=== PATIENT | male | born 1990 | race Hispanic/Latino ===

== ENCOUNTER 2016-10-10 20:50 | Emergency (ER) | payer BC, MEDICAID ==
[2016-10-10 20:51] VITALS: BMI 23.1
[2016-10-10 21:11] VITALS: RESP 16; TEMP 98.7
--- NOTE | 2016-10-10 21:18 | ED PDOC ---
Arrival/HPI - General Chief Complaint: Psychiatric Evaluation Time Seen by Provider: 10/10/16 20:56 Historian: Patient, Parent (father ) - History of Present Illness Narrative History of Present Illness (Text): 10/10/16 21:20 Akhil Kenney is a 26 year old male, with a history of alcohol abuse, opiate abuse on Wellbutrin and Suboxone and depression, presents to the emergency department accompanied by father for evaluation of suicidal ideation. According to father, patient gestured to his mother that he wanted to kill himself. However, in the emergency department, patient denies any suicidal ideation or specific plan.States he really did'nt mean what he said. Patient has been under psychiatric care. Denies any somatic complaints. Severity Level: Mild Context: Home Past Medical History - Provider Review Nursing Documentation Reviewed: Yes - Infectious Disease Hx of Infectious Diseases: None - Tetanus Immunization Tetanus Immunization: Up to Date - Past Medical History Past Medical History: No Previous - Cardiac Other/Comment: Heart murmer - HEENT Hx Deafness: Yes (Left ear) - Psychiatric Hx Depression: No Hx Emotional Abuse: No Hx Physical Abuse: No Hx Substance Use: Yes - Surgical History Hx Tonsillectomy: Yes (adnoids) - Suicidal Assessment Feels Threatened In Home Enviroment: No Family/Social History - Physician Review Nursing Documentation Reviewed: Yes Family/Social History: No Known Family HX Smoking Status: Never Smoked Hx Alcohol Use: Yes Frequency of alcohol use: Daily Hx Substance Use: Yes Substance used: heroin, marijuana, crack, cocaine, ectasy, acid Hx Substance Use Treatment: No Allergies/Home Meds Allergies/Adverse Reactions: Allergies Penicillins Allergy (Verified 10/10/16 21:18) RASH Home Medications: Home Meds Medication Instructions Recorded Confirmed Buprenorphine HCl/Naloxone HCl 2 each SL DAILY 10/10/16 10/10/16 [Suboxone 8 mg-2 mg Sl Film] diaZEpam [Valium] 10 mg PO BID 10/10/16 10/10/16 Review of Systems - Physician Review All systems were reviewed & negative as marked: Yes - Review of Systems Constitutional: Normal. absent: Fatigue, Fevers Respiratory: Normal. absent: SOB, Cough Cardiovascular: Normal. absent: Chest Pain Gastrointestinal: Normal. absent: Abdominal Pain, Diarrhea, Nausea, Vomiting Neurological: absent: Headache, Dizziness Psychiatric: Suicidal Ideation Physical Exam Vital Signs Reviewed: Yes Vital Signs Temp Pulse Resp BP Pulse Ox 10/10/16 21:05 98.7 F 117 H 16 126/81 98 Temperature: Afebrile Blood Pressure: Normal Pulse: Tachycardic Respiratory Rate: Normal Appearance: Positive for: Well-Appearing, Non-Toxic, Comfortable Pain Distress: None Mental Status: Positive for: Alert and Oriented X 3 - Systems Exam Head: Present: Atraumatic, Normocephalic Pupils: Present: PERRL Conjunctiva: Present: Normal Mouth: Present: Moist Mucous Membranes Respiratory/Chest: Present: Clear to Auscultation, Good Air Exchange. No: Respiratory Distress, Accessory Muscle Use Cardiovascular: Present: Regular Rate and Rhythm, Normal S1, S2. No: Murmurs Abdomen: Present: Normal Bowel Sounds. No: Tenderness, Distention, Peritoneal Signs, Rebound, Guarding Upper Extremity: Present: Normal Inspection. No: Cyanosis, Edema Lower Extremity: Present: Normal Inspection. No: Edema Neurological: Present: GCS=15, CN II-XII Intact, Speech Normal, Motor Func Grossly Intact, Normal Sensory Function Skin: Present: Warm, Dry, Normal Color. No: Rashes Psychiatric: Present: Alert, Oriented x 3. No: Normal Affect (flat affect ) Medical Decision Making ED Course and Treatment: 10/10/16 21:25 Impression: A 26 year old male who presents to the emergency department accompanied by father for evaluation of suicidal ideation. Differential Diagnosis included but are not limited to: SI Plan: -- EKG -- Labs -- Alcohol level -- Drug Screen -- Chest X-ray -- Urinalysis -- Reassess and disposition Progress Notes: 10/10/16 21:44 EKG interpreted by me: Sinus Tachycardia @ 103bpm. Right axis deviation. Nonspecific STT changes. 10/11/16 05:50 Pt. was seen and cleared for discharge /follow up with his psychiatrist by ANDREW Gunn/.Pt. w/o any signs of alcohol intoxication.D/c instructions were given - Lab Interpretations Lab Results: 10/10/16 21:55 10/10/16 21:55 Lab Results 10/10/16 22:00: Urine Opiates Screen Negative, Urine Methadone Screen Negative, Ur Barbiturates Screen Negative, Ur Phencyclidine Scrn Negative, Ur Amphetamines Screen Negative, U Benzodiazepines Scrn Negative, U Oth Cocaine Metabols Negative, U Cannabinoids Screen Negative 10/10/16 22:00: Urine Color Yellow, Urine Appearance Clear, Urine pH 6.0, Ur Specific [place] >= 1.030, Urine Protein Trace H, Urine Glucose (UA) Negative, Urine Ketones Negative, Urine Blood Negative, Urine Nitrate Negative, Urine Bilirubin Negative, Urine Urobilinogen 0.2, Ur Leukocyte Esterase Negative, Urine RBC 0 - 2, Urine WBC 0 - 2, Ur Epithelial Cells 0 - 2, Calcium Oxalate Crystal Few 10/10/16 21:55: Alcohol, Quantitative 260 H 10/10/16 21:55: Salicylates < 1 L, Acetaminophen < 10.0 L 10/10/16 21:55: Sodium 147, Potassium 3.6, Chloride 109 H, Carbon Dioxide 24, Anion Gap 18, BUN 9, Creatinine 0.7, Est GFR ( Amer) > 60, Est GFR (Non- Af Amer) > 60, Random Glucose 86, Calcium 8.6, Total Bilirubin 0.4, AST 235 H, ALT 214 H, Alkaline Phosphatase 57, Total Protein 6.9, Albumin 4.1, Globulin 2.8 , Albumin/Globulin Ratio 1.5 10/10/16 21:55: WBC 7.4, RBC 4.13, Hgb 14.0, Hct 39.4 L, MCV 95.4, MCH 33.9, MCHC 35.5, RDW 13.2, Plt Count 252, MPV 10.2, Gran % 35.3 L, Lymph % (Auto) 43.5 H, Mil[place] % (Auto) 9.4 H, Eos % (Auto) 9.6 H, Baso % (Auto) 2.2, Gran # 2.60 , Lymph # 3.2, Milam # 0.7 H, Eos # 0.7, Baso # 0.16, Neutrophils % (Manual) 46 L , Lymphocytes % (Manual) 37 H, Monocytes % (Manual) 10 H, Eosinophils % (Manual ) 7 H, Platelet Evaluation Normal I have reviewed the lab results: Yes - RAD Interpretation Narrative RAD Interpretations (Text): CXR- No acute process Radiology Orders: 10/10/16 21:19 CHEST PORTABLE [RAD] Stat Medicaid Biller: ED Physician - EKG Interpretation Interpreted by ED Physician: Yes Type: 12 lead EKG - Scribe Statement The provider has reviewed the documentation as recorded by the Shilpaibe Filippo Powell Provider Attestation: Provider Scribe Attestation: All medical record entries made by the Jo Ann were at my direction and personally dictated by me. I have reviewed the chart and agree that the record accurately reflects my personal performance of the history, physical exam, medical decision making, and the department course for this patient. I have also personally directed, reviewed, and agree with the discharge instructions and disposition. Disposition/Present on Arrival - Present on Arrival Any Indicators Present on Arrival: No History of DVT/PE: No History of Uncontrolled Diabetes: No Urinary Catheter: No History of Decub. Ulcer: No History Surgical Site Infection Following: None - Disposition Have Diagnosis and Disposition been Completed?: Yes Diagnosis: Depression, Alcohol abuse Disposition: HOME/ ROUTINE Disposition Time: 05:50 Patient Plan: Discharge Patient Problems: Current Active Problems Problem Status Onset Alcohol abuse Acute Depression Acute Condition: STABLE Discharge Instructions (ExitCare): Depression (ED), Abuse of Alcohol (ED) Additional Instructions: Follow up [facility] as per instructions given/follow up with your doctor this week as well Referrals: PCP,NO [Primary Care Provider] - Follow up with primary Forms: [employer] (Italian)
--- NOTE | 2016-10-10 21:19 | ED PDOC ---
Arrival/HPI - General Chief Complaint: Psychiatric Evaluation Time Seen by Provider: 10/10/16 20:56 Historian: Patient, Parent (father ) - History of Present Illness Narrative History of Present Illness (Text): 10/10/16 21:18 Akhil Kenney is a 26 year old male, with a history of alco Severity Level: Mild Activities at Onset: Light Context: Home Past Medical History - Infectious Disease Hx of Infectious Diseases: None - Tetanus Immunization Tetanus Immunization: Up to Date - Past Medical History Past Medical History: No Previous - Cardiac Other/Comment: Heart murmer - HEENT Hx Deafness: Yes (Left ear) - Psychiatric Hx Depression: No Hx Emotional Abuse: No Hx Physical Abuse: No Hx Substance Use: Yes - Surgical History Hx Tonsillectomy: Yes (adnoids) - Suicidal Assessment Feels Threatened In Home Enviroment: No Family/Social History Smoking Status: Never Smoked Hx Alcohol Use: Yes Frequency of alcohol use: Daily Hx Substance Use: Yes Substance used: heroin, marijuana, crack, cocaine, ectasy, acid Hx Substance Use Treatment: No Allergies/Home Meds Allergies/Adverse Reactions: Allergies MDX Penicillin [Penicillin] Allergy (Severe, Verified 07/14/12 20:40) Hives Itchy Home Medications: Home Meds Medication Instructions Recorded Confirmed Buprenorphine HCl/Naloxone HCl 2 each SL DAILY 10/10/16 10/10/16 [Suboxone 8 mg-2 mg Sl Film] diaZEpam [Valium] 10 mg PO BID 10/10/16 10/10/16 Physical Exam Vital Signs Temp Pulse Resp BP Pulse Ox 10/10/16 21:05 98.7 F 117 H 16 126/81 98 Disposition/Present on Arrival - Present on Arrival History of DVT/PE: No History of Uncontrolled Diabetes: No Urinary Catheter: No History of Decub. Ulcer: No History Surgical Site Infection Following: None - Disposition Forms: [employer] (Irish)
[2016-10-10 22:13] LABS: ADD MANUAL DIFF? NO
[2016-10-10 22:20] LABS: URINE BILIRUBIN NEGATIVE (NEGATIVE); URINE BLOOD NEGATIVE (NEGATIVE); URINE GLUCOSE (UA) NEGATIVE (NEGATIVE); URINE KETONE NEGATIVE (NEGATIVE); URINE LEUKOCYTE ESTERASE NEGATIVE Leu/uL (NEGATIVE); URINE PROTEIN TRACE mg/dL (<30 mg/dL); URINE UROBILINOGEN 0.2 E.U./dL (<1 E.U./dL)
[2016-10-10 22:24] LABS: BASO # 0.16 K/mm3 (0.0-2.0); BASO % 2.2 % (0.0-3.0); EOS # 0.7 (0.0-0.7); EOS % 9.6 % (1.5-5.0); GRAN % 35.3 % (50.0-68.0); HEMATOCRIT 39.4 % (42.0-52.0); LYMPH # 3.2 (1.2-3.4); LYMPH % 43.5 % (22.0-35.0); MEAN CELL VOLUME 95.4 fL (80.0-105.0); MEAN CORPUSCULAR HEMOGLOBIN 33.9 pg (25.0-35.0); MEAN CORPUSCULAR HGB CONC 35.5 g/dl (31.0-37.0); MEAN PLATELET VOLUME 10.2 fl (7.0-11.0); MONO # 0.7 (0.1-0.6); MONO % 9.4 % (1.0-6.0); PLATELET COUNT 252 10^3/uL (120.0-450.0); RED CELL DISTRIBUTION WIDTH 13.2 % (11.5-14.5); WHITE BLOOD COUNT 7.4 10^3/ul (4.5-11.0)
[2016-10-10 22:25] LABS: URINE APPEARANCE CLEAR (CLEAR); URINE COLOR YELLOW (YELLOW)
[2016-10-10 22:28] LABS: ALB/GLOB RATIO 1.5 (1.1-1.8); ALKALINE PHOSPHATASE 57 U/L (38-133); ALT/SGPT 214 U/L (7-56); AST/SGOT 235 U/L (15-59); BILIRUBIN,TOTAL 0.4 mg/dL (0.2-1.3); BLOOD UREA NITROGEN 9 mg/dL (7-21); CALCIUM 8.6 mg/dL (8.4-10.5); CARBON DIOXIDE 24 mmol/L (21-33); GFR AFRICAN-AMERICAN > 60; GLUCOSE,RANDOM 86 mg/dL (70-110); POTASSIUM 3.6 mmol/L (3.6-5.0); SODIUM 147 mmol/L (132-148); TOTAL PROTEIN 6.9 g/dL (5.8-8.3)
[2016-10-10 22:32] LABS: CHLORIDE 109 mmol/L (98-107)
[2016-10-10 22:37] LABS: URINE CALCIUM OXALATE CRYSTALS FEW /hpf; URINE EPITHELIAL CELLS 0 - 2 /hpf (0-5); URINE RBC 0 - 2 /hpf (0-2); URINE WBC 0 - 2 /hpf (0-6)
[2016-10-10 22:50] LABS: EOSINOPHIL 7 % (0.0-3.0); NEUTROPHIL 46 % (50.0-70.0)
[2016-10-10 22:51] LABS: PLATELET ESTIMATE NORMAL (NORMAL)
[2016-10-11 06:21] VITALS: BP 126/77; PULSE 75; O2SAT 97
--- NOTE | 2016-10-11 08:04 | RAD ---
HISTORY: medical clearance COMPARISON: No prior. FINDINGS: LUNGS: No active pulmonary disease. PLEURA: No significant pleural effusion identified, no pneumothorax apparent. CARDIOVASCULAR: Normal. OSSEOUS STRUCTURES: No significant abnormalities. VISUALIZED UPPER ABDOMEN: Normal. OTHER FINDINGS: None. IMPRESSION: No acute cardiopulmonary disease appreciated.
--- NOTE | 2016-10-11 10:03 | CARD ---
APPROVED REPORT EKG Measurement Heart [id number] <Conclusion> Sinus tachycardia Possible Left atrial enlargement Rightward axis RVCD Early Repolarization changes
== END 2016-10-11 05:53 | disposition home or self-care (01) ==
LOC: ED 20:50
DX: F32.9 Major depressive disorder, single episode, unspecified (principal); F10.10 Alcohol abuse, uncomplicated; Y90.8 Blood alcohol level of 240 mg/100 ml or more; F11.10 Opioid abuse, uncomplicated

== ENCOUNTER 2017-12-27 15:04 | Emergency (ER) | payer MEDICAID ==
[2017-12-27 15:06] VITALS: BMI 23.0
[2017-12-27 15:13] VITALS: TEMP 98.2
[2017-12-27] MEDS ORDERED: Sodium Chloride 0.9% 1,000 ML IV STA ×2 (15:21→15:25)
--- NOTE | 2017-12-27 15:29 | ED PDOC ---
Arrival/HPI - General Chief Complaint: Substance Abuse Time Seen by Provider: 12/27/17 15:04 - History of Present Illness Narrative History of Present Illness (Text): 12/27/17 15:28 27 yo male, hx of pysch etoh substance abuse, presetns s/p od. as per ems, pt was found unresponsvie. unclear who called ems. narcan given, and awoke. admits to snorting etoh and drinking etoh. no si hi. no other complaints. Past Medical History - Infectious Disease Hx of Infectious Diseases: None - Tetanus Immunization Tetanus Immunization: Up to Date - Past Medical History Past Medical History: No Previous - Cardiac Other/Comment: Heart murmer - Pulmonary Hx Tuberculosis: No - Neurological HX Cerebrovascular Accident: No Hx Seizures: No - HEENT Hx Deafness: Yes (Left ear) - Hematological/Oncological Hx Cancer: No - Genitourinary/Gynecological Hx Sexually Transmitted Diseases: No - Psychiatric Hx Depression: No Hx Emotional Abuse: No Hx Physical Abuse: No Hx Substance Use: Yes - Surgical History Hx Tonsillectomy: Yes (adnoids) - Suicidal Assessment Feels Threatened In Home Enviroment: No Family/Social History Family/Social History: Unknown Family HX Smoking Status: Never Smoked Hx Alcohol Use: Yes Hx Substance Use: Yes Substance used: heroin, marijuana, crack, cocaine, ectasy, acid Hx Substance Use Treatment: No Allergies/Home Meds Allergies/Adverse Reactions: Allergies Penicillins Allergy (Verified 10/10/16 21:18) RASH Home Medications: Home Meds Medication Instructions Recorded Confirmed Alprazolam [Xanax] 0.5 mg PO DAILY 12/27/17 12/27/17 Review of Systems - Review of Systems Constitutional: Normal Eyes: Normal ENT: Normal Respiratory: Normal Cardiovascular: Palpitations Gastrointestinal: Normal Genitourinary Male: Normal Musculoskeletal: Normal Skin: Normal Neurological: Normal Endocrine: Normal Hemo/Lymphatic: Normal Psychiatric: Normal Physical Exam Vital Signs Temp Pulse Resp BP Pulse Ox 12/27/17 15:21 134 H 12/27/17 15:04 98.2 F 159 H 18 146/97 H 99 Temperature: Afebrile Blood Pressure: Normal Pulse: Tachycardic Respiratory Rate: Normal Appearance: Positive for: Well-Appearing, Non-Toxic, Comfortable Pain Distress: None Mental Status: Positive for: Alert and Oriented X 3 - Systems Exam Head: Present: Atraumatic, Normocephalic Pupils: Present: PERRL Extroacular Muscles: Present: EOMI Conjunctiva: Present: Normal Mouth: Present: Moist Mucous Membranes Neck: Present: Normal Range of Motion Respiratory/Chest: Present: Clear to Auscultation, Good Air Exchange. No: Respiratory Distress, Accessory Muscle Use Cardiovascular: Present: Normal S1, S2, Tachycardic. No: Murmurs Abdomen: No: Tenderness, Distention, Peritoneal Signs Back: Present: Normal Inspection Upper Extremity: Present: Normal Inspection. No: Cyanosis, Edema Lower Extremity: Present: Normal Inspection. No: Edema Neurological: Present: GCS=15, CN II-XII Intact, Speech Normal Skin: Present: Warm, Dry, Normal Color. No: Rashes Psychiatric: Present: Alert, Oriented x 3, Normal Insight, Normal Concentration Medical Decision Making ED Course and Treatment: 12/27/17 15:38 Impression: 27 year old male presents to the Emergency Department for evaluation s/p overdose. pt on arriaval hr 160. sinus tach. ?sepsis vs tox vs metabolic, less likely pe. Differential Diagnosis included but are not limited to: Overdose Plan: -- VBG -- EKG -- Labs -- Chest X-ray -- IV fluids -- Urinalysis -- Reassess and disposition Prior Visits: Notes and results from previous visits were reviewed. Progress Notes: 12/27/17 15:50 Chest X-ray reviewed by radiologist, shows no active disease. 12/27/17 19:52 Patient is awake, alert and clinically sober upon reassessment. Patient denies any further observation and wants to leave against medical advice. Patient reports father will be picking him up from the Emergency Department. The patient is choosing to leave against medical advice. I have personally explained to the patient that choosing to do so may result in permanent bodily harm or . I have discussed at great length that without further evaluation and monitoring there may be unforeseen circumstances and/or deterioration causing permanent bodily harm or as a result of their choice. The patient is alert, oriented, and shows the mental capacity to make clear decisions regarding the patients health care at this time. The patient continues to wish to leave against medical advice. In light of the patients decision to leave against medical advice, follow-up has been arranged and the patient is aware of the importance to following up as instructed. The patient has been advised that they should return to the emergency room immediately if they change their mind at any time, or if their condition begins to change or worsen in any way. 12/28/17 11:21 pt reassesed numerous times in er. awake alert taking po. non specific la. antibiotics empricially started given tachycardia, pending ua nad imaging, however sepsis less likely. ivf initated. hr decresing to 120s. pt observed 5 hrs, clinically sober. refuses admission for tachy and LA. signs ama - RAD Interpretation Radiology Orders: 12/27/17 15:21 CHEST PORTABLE [RAD] Stat Zipper Ironer: Radiologist - Medication Orders Current Medication Orders: Sodium Chloride (Sodium Chloride 0.9%) 1,000 mls @ 999 mls/hr IV .Q1H1M STA Stop: 12/27/17 16:21 Sodium Chloride (Sodium Chloride 0.9%) 1,000 mls @ 999 mls/hr IV .Q1H1M STA Stop: 12/27/17 16:25 - Scribe Statement The provider has reviewed the documentation as recorded by the Scribe Mackenzie Camargo. All medical record entries made by the Scribe were at my direction and personally dictated by me. I have reviewed the chart and agree that the record accurately reflects my personal performance of the history, physical exam, medical decision making, and the department course for this patient. I have also personally directed, reviewed, and agree with the discharge instructions and disposition. Disposition/Present on Arrival - Present on Arrival Any Indicators Present on Arrival: No History of DVT/PE: No History of Uncontrolled Diabetes: No Urinary Catheter: No History of Decub. Ulcer: No History Surgical Site Infection Following: None - Disposition Have Diagnosis and Disposition been Completed?: Yes Diagnosis: Tachycardia, Overdose, Lactic acidosis, Left against medical advice Disposition: AGAINST MEDICAL ADVICE Disposition Time: 08:00 Condition: UNKNOWN Discharge Instructions (ExitCare): Tachycardia, Alcohol Poisoning (DC), Leaving Against Medical Advice, Polysubstance Abuse Additional Instructions: please follow up with your doctor/clinic. return to er with worsening symptoms or concerns. Prescriptions: levoFLOXacin [Levaquin] 750 mg PO DAILY #7 tab Referrals: Alcoholics Anonymous [Outside] - Follow up with primary [facility] [Outside] - Follow up with primary [facility] [Outside] - Follow up with primary Forms: [employer] (Fijian)
[2017-12-27 15:32] LABS: BASO # 0.17 K/mm3 (0.0-2.0); BASO % 1.6 % (0.0-3.0); EOS # 0.2 (0.0-0.7); EOS % 1.5 % (1.5-5.0); GRAN # 5.54 (1.4-6.5); GRAN % 52.6 % (50.0-68.0); HEMOGLOBIN 16.2 g/dL (14.0-18.0); LYMPH # 4.3 (1.2-3.4); LYMPH % 40.3 % (22.0-35.0); MEAN CELL VOLUME 101.5 fl (80.0-105.0); MEAN CORPUSCULAR HEMOGLOBIN 34.4 pg (25.0-35.0); MEAN CORPUSCULAR HGB CONC 33.9 g/dl (31.0-37.0); MONO # 0.4 (0.1-0.6); RBC 4.71 10^6/uL (3.5-6.1); WHITE BLOOD COUNT 10.5 10^3/ul (4.5-11.0)
[2017-12-27 15:34] LABS: VENOUS BLOOD GAS BASE EXCESS -2.6 mmol/L (0.0-2.0); VENOUS BLOOD GAS PO2 36 mm/Hg (30-55)
[2017-12-27 15:43] LABS: INR 0.96; PARTIAL THROMBOPLASTIN TIME 25.9 Seconds (25.1-36.5); PROTHROMBIN TIME 10.9 SECONDS (9.4-12.5)
[2017-12-27 15:44] LABS: ALB/GLOB RATIO 1.3 (1.1-1.8); ALBUMIN 4.7 g/dL (3.0-4.8); ALT/SGPT 65 U/L (7-56); AST/SGOT 64 U/L (17-59); BLOOD UREA NITROGEN 7 mg/dL (7-21); CALCIUM 9.3 mg/dL (8.4-10.5); GFR NON-AFRICAN AMERICAN > 60; LIPASE 204 U/L (23-300)
[2017-12-27 15:45] LABS: ACETAMINOPHEN < 10.0 ug/ml (10.0-20.0); SALICYLATE < 1 mg/dL (2.0-20.0)
[2017-12-27] MEDS ORDERED: levoFLOXacin 750 mg in D5W 750 MG/150 ML BAG IVPB STA (15:46)
[2017-12-27 15:55] LABS: TROPONIN I < 0.01 ng/mL
--- NOTE | 2017-12-27 15:57 | RAD ---
Date of service: 12/27/2017 HISTORY: Overdose. COMPARISON: 10/10/2016 FINDINGS: LUNGS: No active pulmonary disease. PLEURA: No significant pleural effusion identified, no pneumothorax apparent. CARDIOVASCULAR: Normal. OSSEOUS STRUCTURES: No significant abnormalities. VISUALIZED UPPER ABDOMEN: Normal. OTHER FINDINGS: None. IMPRESSION: No active disease.
[2017-12-27 16:42] LABS: D DIMER < 200 ng/mlDDU (0-243)
[2017-12-27 16:54] LABS: URINE BILIRUBIN NEGATIVE (NEGATIVE); URINE BLOOD NEGATIVE (NEGATIVE); URINE GLUCOSE (UA) NEGATIVE (NEGATIVE); URINE LEUKOCYTE ESTERASE NEGATIVE Leu/uL (NEGATIVE); URINE PROTEIN 100 mg/dL (<30 mg/dL); URINE UROBILINOGEN 0.2 E.U./dL (<1 E.U./dL)
[2017-12-27 16:55] LABS: URINE APPEARANCE CLEAR (CLEAR); URINE COLOR LIGHT YELLOW (YELLOW)
[2017-12-27 17:15] LABS: URINE EPITHELIAL CELLS 0 - 2 /hpf (0-5); URINE RBC 0 - 2 /hpf (0-2)
[2017-12-27 17:16] LABS: URINE BACTERIA MOD (NEG)
[2017-12-27 17:18] LABS: BARBITURATES, UR NEGATIVE (NEGATIVE); BENZODIAZEPINES, UR POSITIVE (NEGATIVE); OPIATES, UR POSITIVE (NEGATIVE); PHENCYCLIDINE, UR NEGATIVE (NEGATIVE)
[2017-12-27 20:24] VITALS: O2SAT 100
[2017-12-27 20:25] VITALS: BP 141/71; PULSE 98; RESP 17
--- NOTE | 2017-12-28 10:46 | CARD ---
APPROVED REPORT Date of service: 12/27/2017 EKG Measurement Heart [id number] <Conclusion> Sinus tachycardia Possible lateral infarct, age undetermined Cannot rule out Inferior infarct, age undetermined Abnormal ECG
--- NOTE | 2017-12-28 10:46 | CARD ---
APPROVED REPORT Date of service: 12/27/2017 EKG Measurement Heart [id number] <Conclusion> Sinus tachycardia Possible Inferior infarct, age undetermined Anterolateral infarct, age undetermined Abnormal ECG
== END 2017-12-27 20:18 | disposition left against medical advice (07) ==
LOC: ED 15:04
DX: R00.0 Tachycardia, unspecified (principal); E87.2 Acidosis; T51.91XA Toxic effect of unspecified alcohol, accidental (unintentional), initial encounter; Y92.9 Unspecified place or not applicable
CPT/HCPCS: 71045; 80053; 80320; 80324; 80329; 80345; 80346; 80349; 80353; 80358; 80361; 81001; 82550; 82803; 83615; 83690; 83735; 83992; 84484; 85025; 85378; 85610; 85730; 93005; 99285; J7030

== ENCOUNTER 2018-06-06 15:35 | Emergency (ER) | payer MEDICAID ==
[2018-06-06 15:56] VITALS: BMI 24.4
[2018-06-06] MEDS ORDERED: Sodium Chloride 0.9% 1,000 ML IV STA (16:29)
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
[2018-06-06 16:42] LABS: BASO # 0.04 K/mm3 (0.0-2.0); BASO % 0.5 % (0.0-3.0); HEMOGLOBIN 14.3 g/dL (14.0-18.0); LYMPH # 0.7 (1.2-3.4); LYMPH % 9.5 % (22.0-35.0); MEAN CELL VOLUME 95.5 fl (80.0-105.0); MEAN CORPUSCULAR HEMOGLOBIN 32.5 pg (25.0-35.0); MEAN PLATELET VOLUME 10.2 fl (7.0-11.0); MONO # 0.3 (0.1-0.6); MONO % 4.5 % (1.0-6.0); RBC 4.4 10^6/uL (3.5-6.1); RED CELL DISTRIBUTION WIDTH 13.6 % (11.5-14.5); WHITE BLOOD COUNT 7.6 10^3/uL (4.5-11.0)
[2018-06-06 16:58] LABS: ALB/GLOB RATIO 1.4 (1.1-1.8); ALBUMIN 4.5 g/dL (3.0-4.8); ALT/SGPT 74 U/L (7-56); AST/SGOT 123 U/L (17-59); BLOOD UREA NITROGEN 10 mg/dL (7-21); CALCIUM 9.4 mg/dL (8.4-10.5); GFR NON-AFRICAN AMERICAN > 60; LIPASE 55 U/L (23-300)
--- NOTE | 2018-06-06 18:06 | US ---
Date of service: 06/06/2018 HISTORY: upper abd pain; elev lfts COMPARISON: Not available TECHNIQUE: Sonographic evaluation of the abdomen. FINDINGS: LIVER: Measures 13.2 cm. Diffusely increased echogenicity of the liver parenchyma. Consistent with fatty infiltration. Smooth contour. No mass. No biliary ductal dilatation. GALLBLADDER: Unremarkable. No gallstones. COMMON BILE DUCT: Measures 5 mm. No stones. No dilatation. PANCREAS: Unremarkable as visualized. No mass. No ductal dilatation. RIGHT KIDNEY: Measures 11.5cm. Normal echogenicity. No calculus, mass, or hydronephrosis. LEFT KIDNEY: Measures 11.1cm. Normal echogenicity. No calculus, mass, or hydronephrosis. SPLEEN: Normal in size and contour. No mass. AORTA: No aneurysmal dilatation. IVC: Unremarkable. OTHER FINDINGS: None. IMPRESSION: Fatty infiltration of the liver. Otherwise unremarkable examination.
--- NOTE | 2018-06-06 18:43 | CARD ---
APPROVED REPORT Date of service: 06/06/2018 EKG Measurement Heart [id number] <Conclusion> Normal sinus rhythm Rightward axis Borderline ECG
[2018-06-06 18:53] VITALS: BP 136/81; PULSE 96; RESP 17; TEMP 98.6; O2SAT 99
== END 2018-06-06 19:06 | disposition home or self-care (01) ==
LOC: ED 15:35
DX: F10.239 Alcohol dependence with withdrawal, unspecified (principal); K29.20 Alcoholic gastritis without bleeding; F17.210 Nicotine dependence, cigarettes, uncomplicated
CPT/HCPCS: 76700; 80053; 80320; 83690; 83735; 85025; 93005; 96361; 96374; 96375; 99284; J1885; J2060; J2405; J7030

== ENCOUNTER 2018-07-18 14:35 | Emergency (ER) | payer MEDICAID ==
[2018-07-18 15:01] VITALS: BMI 20.7
[2018-07-18] MEDS ORDERED: Multivitamin (MVI) 10 ML, Thiamine 100 MG, Folic Acid 1 MG in Sodium Chloride 0.9% 1,00... IV ONE (15:04)
[2018-07-18 15:12] VITALS: RESP 18; TEMP 98.1
[2018-07-18] MEDS ORDERED: Famotidine 20mg/50ml 20 MG in Premixed IV 50 EA IVPB STA (15:41)
[2018-07-18 15:48] LABS: BASO # 0.15 K/mm3 (0.0-2.0); BASO % 2.6 % (0.0-3.0); EOS # 0.1 (0.0-0.7); EOS % 0.9 % (1.5-5.0); HEMOGLOBIN 16.3 g/dL (14.0-18.0); LYMPH # 1.7 (1.2-3.4); LYMPH % 28.8 % (22.0-35.0); MEAN CELL VOLUME 95.2 fl (80.0-105.0); MEAN CORPUSCULAR HEMOGLOBIN 33.7 pg (25.0-35.0); MEAN CORPUSCULAR HGB CONC 35.4 g/dl (31.0-37.0); MEAN PLATELET VOLUME 10.3 fl (7.0-11.0); MONO # 0.3 (0.1-0.6); MONO % 5.7 % (1.0-6.0); RBC 4.84 10^6/uL (3.5-6.1); RED CELL DISTRIBUTION WIDTH 12.9 % (11.5-14.5); WHITE BLOOD COUNT 5.8 10^3/uL (4.5-11.0)
--- NOTE | 2018-07-18 15:50 | ED PDOC ---
Arrival/HPI - General Chief Complaint: Substance Abuse Time Seen by Provider: 07/18/18 14:40 Historian: Patient - History of Present Illness Narrative History of Present Illness (Text): 07/18/18 15:47 28 y.o male with past medical history of alcoholic pancreatitis, seizures,and anxiety, presents to the emergency department complaining of withdrawal symptoms from alcohol and benzo. Patient states last alcohol drink was yesterday and last xanax was 2 weeks ago. 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 Patients CIWA score is approximately a 3. Symptom Onset: Gradual Symptom Course: Unchanged Activities at Onset: Light Context: Home Past Medical History - Provider Review Nursing Documentation Reviewed: Yes Primary Care Provider: Non [facility] Provider, - Infectious Disease Hx of Infectious Diseases: None - Tetanus Immunization Tetanus Immunization: Up to Date - Past Medical History Past Medical History: No Previous - Cardiac Other/Comment: Heart murmer - Pulmonary Hx Tuberculosis: No - Neurological Hx Seizures: Yes (4 yr ago r/t benzo withdrawal) - HEENT Hx Deafness: Yes (Left ear) - Renal Hx Renal Disorder: No - Endocrine/Metabolic Hx Endocrine Disorders: No - Hematological/Oncological Hx Cancer: No - Integumentary Hx Dermatological Disorder: No - Musculoskeletal/Rheumatological Hx Falls: No - Gastrointestinal Hx Pancreatitis: Yes - Genitourinary/Gynecological Hx Sexually Transmitted Diseases: No - Psychiatric Hx Depression: No Hx Emotional Abuse: No Hx Physical Abuse: No Hx Substance Use: Yes (pain killers, heroin, crack, cocaine, ecstasy, kaykay, but pt claimed he sto) - Surgical History Hx Tonsillectomy: Yes Other/Comment: L ear tubes - Anesthesia Hx Anesthesia: Yes Hx Anesthesia Reactions: No Hx Malignant Hyperthermia: No - Suicidal Assessment Feels Threatened In Home Enviroment: No Family/Social History - Physician Review Nursing Documentation Reviewed: Yes Family/Social History: Unknown Family HX Smoking Status: Heavy Smoker > 10 Cigarettes Daily Hx Alcohol Use: Yes Hx Substance Use: Yes (pain killers, heroin, crack, cocaine, ecstasy, kaykay, but pt claimed he sto) Substance used: Oxycontin Hx Substance Use Treatment: No Allergies/Home Meds Allergies/Adverse Reactions: Allergies Penicillins Allergy (Verified 07/18/18 15:25) RASH Home Medications: Home Meds Medication Instructions Recorded Confirmed Alprazolam [Xanax] 0.5 mg PO DAILY 12/27/17 07/18/18 Review of Systems - Physician Review All systems were reviewed & negative as marked: Yes - Review of Systems Neurological: Seizure (Patient reports 4 seizures today.), Other (Withdrawal symptoms from alcohol and benzo. ) Physical Exam - Physical Exam Narrative Physical Exam (Text): 07/18/18 15:51 Gen: VS reviewed, alert, well developed, well nourished, nontoxic, mild distress. ENT: normal pharynx. Eye: Pupils dilated. Reactive to light. Neck: no JVD, supple, no adenopathy. CV: regular rate, regular rhythm, no rubs, no murmur, no gallops, S1, S2, pulses equal and strong. Pulm: no distress, clear to auscultation, no wheeze, no rhonchi, breath sounds equal, no rales. Abd: soft, nontender, no guarding, no rebound, no rigidity, normal bowel sounds. Ext: no edema. Skin: good color, no rash, no cyanosis. Psych: responds appropriately to questions, normal affect. Neuro: oriented x 3, CN2-12 intact grossly, sensation intact, tremors. Vital Signs Reviewed: Yes Vital Signs Temp Pulse Resp BP Pulse Ox 07/18/18 15:11 98.1 F 95 H 18 152/62 H 95 07/18/18 15:01 98.4 F 97 H 18 154/105 H 98 Temperature: Afebrile Blood Pressure: Hypertensive Pulse: Regular Respiratory Rate: Normal Appearance: Positive for: Well-Appearing Pain Distress: Mild Mental Status: Positive for: Alert and Oriented X 3 Medical Decision Making ED Course and Treatment: 07/18/18 17:[address] rich to the hospitalist service. patient to be admitted for alcohol withdrawal. - Critical Care Critical Care Minutes: 30 minutes - Medication Orders Current Medication Orders: Multivitamins/Vitamin C 10 ml/Thiamine HCl 100 mg/ Folic Acid 1 mg/ Sodium Chloride 1,011.2 mls @ 150 mls/hr IV .Q6H45M ONE Stop: 07/18/18 21:48 Last Admin: 07/18/18 15:39 Dose: 150 mls/hr eMAR Start Stop Document 07/18/18 15:39 (Rec: 05/08/19 15:39 MR [id number]) Intravenous Solution Start Date 07/18/18 Start Time 15:39 Discontinued Medications Famotidine (Pepcid) 20 mg IVP STAT STA Stop: 07/18/18 15:46 Famotidine 20 mg/ (Miscellaneous) 50 mls @ 100 mls/hr IVPB STAT STA Stop: 07/18/18 16:10 Lorazepam (Ativan) 2 mg IVP ONCE ONE; Protocol Stop: 07/18/18 15:05 Last Admin: 07/18/18 15:29 Dose: 2 mg IVP Administration Document 07/18/18 15:29 MR (Rec: 07/18/18 15:29 MR [id number]) Charges for Administration # of IVP Administrations 1 Ondansetron HCl (Zofran Inj) 4 mg IVP STAT STA Stop: 07/18/18 15:42 - Scribe Statement The provider has reviewed the documentation as recorded by the Scribe Vonda Skaggs All medical record entries made by the Scribe were at my direction and personally dictated by me. I have reviewed the chart and agree that the record accurately reflects my personal performance of the history, physical exam, medical decision making, and the department course for this patient. I have also personally directed, reviewed, and agree with the discharge instructions and disposition. Disposition/Present on Arrival - Present on Arrival Any Indicators Present on Arrival: No History of DVT/PE: No History of Uncontrolled Diabetes: No Urinary Catheter: No History of Decub. Ulcer: No History Surgical Site Infection Following: None - Disposition Have Diagnosis and Disposition been Completed?: Yes Diagnosis: Alcohol withdrawal Disposition: HOSPITALIZED Disposition Time: 14:30 Patient Plan: Admission Patient Problems: Current Active Problems Problem Status Onset Alcohol withdrawal Acute Condition: GUARDED Forms: [employer] (Albanian)
[2018-07-18 16:06] LABS: ALB/GLOB RATIO 1.5 (1.1-1.8); ALBUMIN 4.5 g/dL (3.0-4.8); ALT/SGPT 228 U/L (7-56); AST/SGOT 289 U/L (17-59); BLOOD UREA NITROGEN 7 mg/dL (7-21); CALCIUM 8.8 mg/dL (8.4-10.5); GFR NON-AFRICAN AMERICAN > 60
[2018-07-18 17:47] VITALS: BP 126/78; PULSE 104; O2SAT 97
--- NOTE | 2018-07-18 18:06 | CP.PCM.PCO ---
<Edie Pak - Last Filed: 07/18/18 18:04> Against Medical Advice - AMA Patient Left Against Medical Advice: The patient declines admission to the hospital and wishes to leave the Emergency Department. This action is against my medical advice. This decision was made with informed refusal. The patient was told that admission to the hospital is necessary. Explanation of the reasons why were discussed. The risks of leaving were explained to the patient and include, but are not limited to, seizures, , worsening of known or currently unknown conditions, permanent disability and from undiagnosed or untreated conditions. The patient has the capacity to make this informed decision and understands my explanation of the current medical problem and risks of leaving. The patient voluntarily accepts these risks and signed an AMA form documenting our conversation. The patient was given the opportunity to ask questions and reconsider. The patient was encouraged to return to the Emergency Department at any time for further care. Edie Pasha DO <Anderson Mcfadden - Last Filed: 07/18/18 18:27> Against Medical Advice - AMA Patient Left Against Medical Advice: The patient declines admission to the hospital and wishes to leave the Emergency Department. This action is against my medical advice. This decision was made with informed refusal. The patient was told that admission to the hospital is necessary. Explanation of the reasons why were discussed. The risks of leaving were explained to the patient and include, but are not limited to, worsening of known or currently unknown conditions, permanent disability and from undiagnosed or untreated conditions. The patient has the capacity to make this informed decision and understands my explanation of the current medical problem and risks of leaving. The patient voluntarily accepts these risks and signed an AMA form documenting our conversation. The patient was given the opportunity to ask questions and reconsider. The patient was encouraged to return to the Emergency Department at any time for further care. Attending/Attestation - Attestation I have reviewed all pertinent clinical information: Yes Notes (Text): 07/18/18 18:23 Patient presents with witnessed seizures. Possible alcohol withdrawal / benzo withdrawal related. He was seen in the ER. Significant other at bedside. He refused examination. He is refusing admission. He was explained to risk of signing out AMA as about. He verbalized understanding of the risks but signed out against medical advice. Counselled on alcohol cessation. Counselled on risks of continued substance/BZ abuse. Advised to follow up with pmd and psychiatrist. Return to ER if any further seizures or concerns. Anderson Mcfadden MD Hospitalist.
--- NOTE | 2018-07-19 10:36 | CARD ---
APPROVED REPORT Date of service: 07/18/2018 EKG Measurement Heart [id number] <Conclusion> Normal sinus rhythm Rightward axis Borderline ECG
== END 2018-07-18 17:55 | disposition left against medical advice (07) ==
LOC: ED 14:35 → ERH 17:13 → UNDOADMIN 17:13
DX: F10.239 Alcohol dependence with withdrawal, unspecified (principal); Y90.8 Blood alcohol level of 240 mg/100 ml or more; K86.0 Alcohol-induced chronic pancreatitis; F41.9 Anxiety disorder, unspecified; R56.9 Unspecified convulsions; H91.92 Unspecified hearing loss, left ear
CPT/HCPCS: 80053; 80320; 83735; 85025; 93005; 96374; 96375; 99284; J2060; J2405; J3411; J7030

== ENCOUNTER 2018-07-24 20:45 | Inpatient (IN) | payer MEDICAID ==
--- NOTE | 2018-07-24 21:03 | ED PDOC ---
Arrival/HPI - General Chief Complaint: Seizure Time Seen by Provider: 07/24/18 20:50 Historian: Patient - History of Present Illness Narrative History of Present Illness (Text): 07/24/18 21:03 Akhil Kenney is a 28 year old male, whose past medical history includes alcohol abuse, polysubstance abuse, pancreatitis, who presents to the ED brought in by EMS for seizures. Patient states he has had multiple seizures today, notes he h ad 2 this evening, most recent episode was prior to arrival. Patient reports he has a history of alcohol withdrawal seizures and notes he has not had an alcoholic drink since yesterday. Patient denies any fever, chills, chest pain, shortness of breath, nausea, vomiting, diarrhea, urinary symptoms, back pain, neck pain, headache, dizziness, or any other complaints. Time/Duration: Other (today) Symptom Course: Unchanged Activities at Onset: Light Context: Home Past Medical History - Provider Review Nursing Documentation Reviewed: Yes - Infectious Disease Hx of Infectious Diseases: None - Tetanus Immunization Tetanus Immunization: Up to Date - Past Medical History Past Medical History: No Previous - Cardiac Hx Cardiac Disorders: Yes Hx Heart Murmur: Yes - Pulmonary Hx Tuberculosis: No - Neurological Hx Neurological Disorder: Yes Hx Seizures: Yes (4 yr ago r/t benzo withdrawal) - HEENT Hx HEENT Disorder: Yes Hx Deafness: Yes (Left ear) - Renal Hx Renal Disorder: No - Endocrine/Metabolic Hx Endocrine Disorders: No - Hematological/Oncological Hx Cancer: No - Integumentary Hx Dermatological Disorder: No - Musculoskeletal/Rheumatological Hx Falls: No - Gastrointestinal Hx Pancreatitis: Yes - Genitourinary/Gynecological Hx Sexually Transmitted Diseases: No - Psychiatric Hx Depression: No Hx Emotional Abuse: No Hx Physical Abuse: No Hx Substance Use: Yes (pain killers, heroin, crack, cocaine, ecstasy, kaykay, but pt claimed he sto) - Surgical History Hx Tonsillectomy: Yes Other/Comment: L ear tubes - Anesthesia Hx Anesthesia: Yes Hx Anesthesia Reactions: No Hx Malignant Hyperthermia: No - Suicidal Assessment Feels Threatened In Home Enviroment: No Family/Social History - Physician Review Nursing Documentation Reviewed: Yes Family/Social History: Unknown Family HX Smoking Status: Heavy Smoker > 10 Cigarettes Daily Hx Alcohol Use: Yes Frequency of alcohol use: Daily Hx Substance Use: Yes (pain killers, heroin, crack, cocaine, ecstasy, kaykay, but pt claimed he sto) Substance used: Oxycontin Hx Substance Use Treatment: No Allergies/Home Meds Allergies/Adverse Reactions: Allergies Penicillins Allergy (Verified 07/24/18 20:50) RASH Home Medications: Home Meds Medication Instructions Recorded Confirmed Alprazolam [Xanax] 0.5 mg PO DAILY 12/27/17 07/24/18 Review of Systems - Physician Review All systems were reviewed & negative as marked: Yes - Review of Systems Constitutional: Normal. absent: Fevers Eyes: Normal ENT: Normal Respiratory: Normal. absent: SOB, Cough Cardiovascular: Normal. absent: Chest Pain Gastrointestinal: Normal. absent: Abdominal Pain, Diarrhea, Nausea, Vomiting Genitourinary Male: Normal. absent: Dysuria, Frequency, Hematuria, Urinary Output Changes Musculoskeletal: Normal. absent: Back Pain, Neck Pain Skin: Normal. absent: Rash Neurological: Seizure. absent: Headache, Dizziness Endocrine: Normal Hemo/Lymphatic: Normal Psychiatric: Normal Physical Exam Vital Signs Reviewed: Yes Vital Signs Temp Pulse Resp BP Pulse Ox 07/24/18 20:50 98.4 F 119 H 20 149/99 H 98 Temperature: Afebrile Blood Pressure: Hypertensive Pulse: Tachycardic Respiratory Rate: Normal Appearance: Positive for: Well-Appearing, Non-Toxic, Comfortable Pain Distress: None Mental Status: Positive for: Alert and Oriented X 3 - Systems Exam Head: Present: Atraumatic, Normocephalic Pupils: Present: PERRL Extroacular Muscles: Present: EOMI Conjunctiva: Present: Normal Mouth: Present: Moist Mucous Membranes Neck: Present: Normal Range of Motion. No: Meningeal Signs, MIDLINE TENDERNESS, Paraspinal Tenderness Respiratory/Chest: Present: Clear to Auscultation, Good Air Exchange. No: Respiratory Distress, Accessory Muscle Use Cardiovascular: Present: Regular Rate and Rhythm, Normal S1, S2. No: Murmurs Abdomen: No: Tenderness, Distention, Peritoneal Signs Back: Present: Normal Inspection Upper Extremity: Present: Normal Inspection. No: Cyanosis, Edema Lower Extremity: Present: Normal Inspection. No: Edema Neurological: Present: GCS=15, CN II-XII Intact, Speech Normal, Motor Func Grossly Intact, Normal Sensory Function, Normal Cerebellar Funct Skin: Present: Warm, Dry, Normal Color. No: Rashes Psychiatric: Present: Alert, Oriented x 3, Normal Insight, Normal Concentration Medical Decision Making ED Course and Treatment: 07/24/18 21:03 Impression: 28 year old male complaining of multiple seizures today. Plan: -- CT Head -- EKG -- Chest X-ray -- Labs, alcohol level, cardiac enzymes, ammonia level -- Urinalysis, urine drug screen -- IV fluids -- Librium -- Reassess and disposition Prior Visits: Notes and results from previous visits were reviewed. Progress Notes: Reviewed EKG, sinus tachycardia at 104 bpm. Rightward axis. No acute ST segment changes. 07/24/18 22:17 Reviewed radiology, Chest X-ray shows no acute processes. CT Head: BRAIN: No acute intraparenchymal hemorrhage. No mass lesion. No CT evidence for acute territorial infarct. No midline shift or extra-axial collections. There is mild prominence of the cisterna magna noted. VENTRICLES: No hydrocephalus. ORBITS: The orbits are unremarkable. SINUSES AND MASTOIDS: The paranasal sinuses and mastoid air cells are clear. BONES: No fracture. SOFT TISSUES: Unremarkable. IMPRESSION: 1. No acute intracranial abnormality. 2. Mild prominence of the cisterna magna noted. Electronically signed on July 24, 2018 10:00:17 PM EDT by: Herson Walls M.D., M.B.A., Certified By [employer] Trained MRI and CT Specialist 07/24/18 22:26 Case discussed with medical staff specialist sheep boner, who is aware and agrees with plan. 07/24/18 22:[address] Henry, who is aware and agrees with plan. Accepts pt in to hospitalist service. - Lab Interpretations I have reviewed the lab results: Yes - RAD Interpretation Diffusion Furnace Operator: Radiologist - EKG Interpretation Interpreted by ED Physician: Yes Type: 12 lead EKG - Scribe Statement The provider has reviewed the documentation as recorded by the Jo Ann Martinez Provider Scribe Attestation: All medical record entries made by the Scribe were at my direction and personally dictated by me. I have reviewed the chart and agree that the record accurately reflects my personal performance of the history, physical exam, medical decision making, and the department course for this patient. I have also personally directed, reviewed, and agree with the discharge instructions and disposition. Disposition/Present on Arrival - Present on Arrival Any Indicators Present on Arrival: No History of DVT/PE: No History of Uncontrolled Diabetes: No Urinary Catheter: No History of Decub. Ulcer: No History Surgical Site Infection Following: None - Disposition Have Diagnosis and Disposition been Completed?: Yes Diagnosis: Alcohol withdrawal, Seizure Disposition: HOSPITALIZED Disposition Time: 22:30 Condition: FAIR
[2018-07-24] MEDS ORDERED: Multivitamin (MVI) 10 ML, Thiamine 100 MG, Folic Acid 1 MG in Sodium Chloride 0.9% 1,00... IV ONE (21:05)
[2018-07-24 21:21] LABS: BASO # 0.15 K/mm3 (0.0-2.0); BASO % 1.7 % (0.0-3.0); EOS # 0.1 (0.0-0.7); EOS % 0.8 % (1.5-5.0); HEMOGLOBIN 16.8 g/dL (14.0-18.0); LYMPH # 3.2 (1.2-3.4); MEAN CELL VOLUME 97.4 fl (80.0-105.0); MEAN CORPUSCULAR HEMOGLOBIN 33.9 pg (25.0-35.0); MEAN CORPUSCULAR HGB CONC 34.8 g/dl (31.0-37.0); MEAN PLATELET VOLUME 10.2 fl (7.0-11.0); MONO # 0.4 (0.1-0.6); MONO % 4.9 % (1.0-6.0); RBC 4.96 10^6/uL (3.5-6.1); RED CELL DISTRIBUTION WIDTH 13.5 % (11.5-14.5)
[2018-07-24 21:31] LABS: INR 1.01; PROTHROMBIN TIME 11.2 SECONDS (9.4-12.5)
[2018-07-24 21:39] VITALS: BMI 23.7
[2018-07-24 21:45] LABS: URINE BILIRUBIN NEGATIVE (NEGATIVE); URINE BLOOD NEGATIVE (NEGATIVE); URINE GLUCOSE (UA) NEGATIVE (NEGATIVE); URINE LEUKOCYTE ESTERASE NEGATIVE Leu/uL (NEGATIVE); URINE PROTEIN TRACE mg/dL (<30 mg/dL)
[2018-07-24 21:46] LABS: URINE APPEARANCE CLEAR (CLEAR); URINE COLOR YELLOW (YELLOW)
[2018-07-24 21:51] LABS: ACETAMINOPHEN < 10.0 ug/ml (10.0-20.0); SALICYLATE < 1 mg/dL (2.0-20.0)
[2018-07-24 21:57] LABS: URINE BACTERIA SMALL /hpf; URINE EPITHELIAL CELLS 0 - 2 /hpf (0-5); URINE WBC 0 - 2 /hpf (0-6)
[2018-07-24 22:07] LABS: ALB/GLOB RATIO 1.4 (1.1-1.8); ALBUMIN 4.7 g/dL (3.0-4.8); ALT/SGPT 319 U/L (7-56); AST/SGOT 428 U/L (17-59); BLOOD UREA NITROGEN 8 mg/dL (7-21); CALCIUM 8.7 mg/dL (8.4-10.5); GFR NON-AFRICAN AMERICAN > 60
[2018-07-24 22:08] LABS: TROPONIN I < 0.01 ng/mL
[2018-07-24 22:24] LABS: BARBITURATES, UR NEGATIVE (NEGATIVE); BENZODIAZEPINES, UR POSITIVE (NEGATIVE); OPIATES, UR NEGATIVE (NEGATIVE); PHENCYCLIDINE, UR NEGATIVE (NEGATIVE)
--- NOTE | 2018-07-24 23:29 | CP.PCM.HP ---
<Roberto Clarke - Last Filed: 07/24/18 23:22> History of Present Illness - History of Present Illness History of Present Illness: 28 year old male with past medical history of anxiety, alcohol abuse/withdrawal, opioid abuse/withdrawal, and seizures secondary to alcohol withdrawal presenting to the hospital for 6 seizures beginning this morning. Patient states last alcoholic beverage was yesterday morning. Seizures lasted 5-15 seconds with first seizure this morning. Patient states seizures were witnessed by girlfriend. Patient did not have any incontinence or tongue biting. Seizures are described as 'blank stares'. Patient was recently admitted to hospital and immediately signed out AMA. Patient had abdominal US 2 months ago which demonstrated fatty liver. Denies chest pain, nausea, vomiting, diarrhea, fever, chills, focal neurological deficits, headache, tingling, weakness. Medical Hx: anxiety, alcohol abuse/withdrawal, opioid abuse/withdrawal Surgical Hx: adenoidectomy, tonsillectomy, eustachian tubes b/l Family Hx: Denies Social Hx: 4-5 pints vodka/day, smokes 1 ppd x 17 years. Crack cocaine and heroin use. Last use 3 months ago. Unemployed. Medications: Xanax Allergies: PCN (hives) PMD: Dr. Owens in [facility] Present on Admission - Present on Admission Any Indicators Present on Admission: No Review of Systems - Review of Systems Review of Systems: 12 point ROS as per HPI, otherwise negative Past Patient History - Infectious Disease Hx of Infectious Diseases: None - Tetanus Immunizations Tetanus Immunization: Up to Date - Past Medical History & Family History Past Medical History?: Yes - Past Social History Smoking Status: Heavy Smoker > 10 Cigarettes Daily - CARDIAC Hx Cardiac Disorders: Yes Hx Heart Murmur: Yes - PULMONARY Hx Tuberculosis: No - NEUROLOGICAL Hx Neurological Disorder: Yes Hx Seizures: Yes (4 yr ago r/t benzo withdrawal) - HEENT Hx HEENT Problems: Yes Hx Deafness: Yes (Left ear) - RENAL Hx Chronic Kidney Disease: No - ENDOCRINE/METABOLIC Hx Endocrine Disorders: No - HEMATOLOGICAL/ONCOLOGICAL Hx Cancer: No - INTEGUMENTARY Hx Dermatological Problems: No - MUSCULOSKELETAL/RHEUMATOLOGICAL Hx Falls: No - GASTROINTESTINAL Hx Pancreatitis: Yes - GENITOURINARY/GYNECOLOGICAL Hx Sexually Transmitted Disorders: No - PSYCHIATRIC Hx Depression: No Hx Emotional Abuse: No Hx Physical Abuse: No Hx Substance Use: Yes (pain killers, heroin, crack, cocaine, ecstasy, kaykay, but pt claimed he sto) - SURGICAL HISTORY Hx Tonsillectomy: Yes Other/Comment: L ear tubes - ANESTHESIA Hx Anesthesia: Yes Hx Anesthesia Reactions: No Hx Malignant Hyperthermia: No Meds Allergies/Adverse Reactions: Allergies Allergy/AdvReac Type Severity Reaction Status Date / Time Penicillins Allergy RASH Verified 07/24/18 20:50 Physical Exam - Constitutional Appears: Non-toxic, No Acute Distress - Head Exam Head Exam: ATRAUMATIC, NORMAL INSPECTION, NORMOCEPHALIC - Eye Exam Eye Exam: EOMI, Normal appearance. absent: Conjunctival injection - ENT Exam ENT Exam: Mucous Membranes Moist - Respiratory Exam Respiratory Exam: Clear to Auscultation Bilateral, NORMAL BREATHING PATTERN. absent: Rales, Rhonchi, Wheezes, Respiratory Distress - Cardiovascular Exam Cardiovascular Exam: RRR, +S1, +S2. absent: Gallop, Irregular Rhythm, Systolic Murmur - GI/Abdominal Exam GI & Abdominal Exam: Normal Bowel Sounds, Soft, Tenderness (Epigastric) - Extremities Exam Extremities exam: Positive for: normal inspection. Negative for: calf tenderness, pedal edema - Neurological Exam Neurological exam: Alert, CN II-XII Intact, Oriented x3 Additional comments: Tremulous - Psychiatric Exam Psychiatric exam: Anxious, Normal Affect - Skin Skin Exam: Dry, Intact, Normal Color, Warm Results - Vital Signs Recent Vital Signs: Last Vital Signs Temp 98.4 F 07/24/18 20:50 Pulse 106 H 07/24/18 22:15 Resp 18 07/24/18 22:15 BP 130/80 07/24/18 22:15 Pulse Ox 97 07/24/18 22:15 - Labs Result Diagrams: 07/24/18 21:18 07/24/18 21:18 Labs: Laboratory Results - last 24 hr 07/24/18 07/24/18 07/24/18 21:18 21:18 21:18 WBC 9.0 D RBC 4.96 Hgb 16.8 Hct 48.3 MCV 97.4 MCH 33.9 MCHC 34.8 RDW 13.5 Plt Count 200 MPV 10.2 Neut % (Auto) 56.6 Lymph % (Auto) 36.0 H Carbon % (Auto) 4.9 Eos % (Auto) 0.8 L Baso % (Auto) 1.7 Lymph # (Auto) 3.2 Carbon # (Auto) 0.4 Eos # (Auto) 0.1 Baso # (Auto) 0.15 Absolute Neuts (auto) 5.09 PT 11.2 INR 1.01 APTT 33.0 Sodium 145 Potassium 4.2 Chloride 107 Carbon Dioxide 23 Anion Gap 19 BUN 8 Creatinine 0.7 L Est GFR ( Amer) > 60 Est GFR (Non-Af Amer) > 60 Random Glucose 83 Calcium 8.7 Phosphorus 4.1 Magnesium 2.1 Total Bilirubin 0.7 AST 428 H D ALT 319 H Alkaline Phosphatase 131 H D Lactate Dehydrogenase 896 H Total Creatine Kinase 115 Troponin I < 0.01 Total Protein 8.1 Albumin 4.7 Globulin 3.4 Albumin/Globulin Ratio 1.4 Urine Color Urine Appearance Urine pH Ur Specific Burney Urine Protein Urine Glucose (UA) Urine Ketones Urine Blood Urine Nitrate Urine Bilirubin Urine Urobilinogen Ur Leukocyte Esterase Urine RBC Urine WBC Ur Epithelial Cells Urine Bacteria Salicylates Urine Opiates Screen Urine Methadone Screen Acetaminophen Ur Barbiturates Screen Ur Phencyclidine Scrn Ur Amphetamines Screen U Benzodiazepines Scrn U Oth Cocaine Metabols U Cannabinoids Screen Alcohol, Quantitative 07/24/18 07/24/18 07/24/18 21:18 21:18 21:37 WBC RBC Hgb Hct MCV MCH MCHC RDW Plt Count MPV Neut % (Auto) Lymph % (Auto) Carbon % (Auto) Eos % (Auto) Baso % (Auto) Lymph # (Auto) Carbon # (Auto) Eos # (Auto) Baso # (Auto) Absolute Neuts (auto) PT INR APTT Sodium Potassium Chloride Carbon Dioxide Anion Gap BUN Creatinine Est GFR ( Amer) Est GFR (Non-Af Amer) Random Glucose Calcium Phosphorus Magnesium Total Bilirubin AST ALT Alkaline Phosphatase Lactate Dehydrogenase Total Creatine Kinase Troponin I Total Protein Albumin Globulin Albumin/Globulin Ratio Urine Color Yellow Urine Appearance Clear Urine pH 6.0 Ur Specific Burney 1.020 Urine Protein Trace H Urine Glucose (UA) Negative Urine Ketones Trace H Urine Blood Negative Urine Nitrate Negative Urine Bilirubin Negative Urine Urobilinogen 1.0 H Ur Leukocyte Esterase Negative Urine RBC None Urine WBC 0 - 2 Ur Epithelial Cells 0 - 2 Urine Bacteria Small Salicylates < 1 L Urine Opiates Screen Urine Methadone Screen Acetaminophen < 10.0 L Ur Barbiturates Screen Ur Phencyclidine Scrn Ur Amphetamines Screen U Benzodiazepines Scrn U Oth Cocaine Metabols U Cannabinoids Screen Alcohol, Quantitative 380 H* 07/24/18 21:37 WBC RBC Hgb Hct MCV MCH MCHC RDW Plt Count MPV Neut % (Auto) Lymph % (Auto) Carbon % (Auto) Eos % (Auto) Baso % (Auto) Lymph # (Auto) Carbon # (Auto) Eos # (Auto) Baso # (Auto) Absolute Neuts (auto) PT INR APTT Sodium Potassium Chloride Carbon Dioxide Anion Gap BUN Creatinine Est GFR ( Amer) Est GFR (Non-Af Amer) Random Glucose Calcium Phosphorus Magnesium Total Bilirubin AST ALT Alkaline Phosphatase Lactate Dehydrogenase Total Creatine Kinase Troponin I Total Protein Albumin Globulin Albumin/Globulin Ratio Urine Color Urine Appearance Urine pH Ur Specific Burney Urine Protein Urine Glucose (UA) Urine Ketones Urine Blood Urine Nitrate Urine Bilirubin Urine Urobilinogen Ur Leukocyte Esterase Urine RBC Urine WBC Ur Epithelial Cells Urine Bacteria Salicylates Urine Opiates Screen Negative Urine Methadone Screen Negative Acetaminophen Ur Barbiturates Screen Negative Ur Phencyclidine Scrn Negative Ur Amphetamines Screen Negative U Benzodiazepines Scrn Positive H U Oth Cocaine Metabols Negative U Cannabinoids Screen Negative Alcohol, Quantitative Assessment & Plan - Assessment and Plan (Free Text) Plan: 28 year old male with past medical history of anxiety, alcohol abuse/withdrawal, opioid abuse/withdrawal, and seizures presents with seizures likely secondary to alcohol withdrawal. Seizures, likely secondary to alcohol withdrawal Ativan Neuro consulted Head CT negative Seizure precautions Alcohol withdrawal Ativan 2 q4h BENJAMÍN Ativan 1 q2h PRN Banana bag Lipase ordered Transaminitis, likely secondary to alcoholic hepatitis Hepatitis panel ordered Recheck in AM Previous abdomen US shows fatty liver Alcohol abuse Counseled on cessation Tobacco use Counseled on cessation Nicoderm Patch Prophylaxis Pepcid SCDs Tricia, PGY-3 <Yobani Henry - Last Filed: 07/25/18 06:32> Results - Vital Signs Recent Vital Signs: Last Vital Signs Temp 98.5 F 07/25/18 06:00 Pulse 88 07/25/18 06:00 Resp 22 07/25/18 06:00 BP 119/68 07/25/18 06:00 Pulse Ox 98 07/25/18 06:00 - Labs Result Diagrams: 07/24/18 21:18 05/14/19 21:18 Labs: Laboratory Results - last 24 hr 07/24/18 07/24/18 07/24/18 21:18 21:18 21:18 WBC 9.0 D RBC 4.96 Hgb 16.8 Hct 48.3 MCV 97.4 MCH 33.9 MCHC 34.8 RDW 13.5 Plt Count 200 MPV 10.2 Neut % (Auto) 56.6 Lymph % (Auto) 36.0 H Carbon % (Auto) 4.9 Eos % (Auto) 0.8 L Baso % (Auto) 1.7 Lymph # (Auto) 3.2 Carbon # (Auto) 0.4 Eos # (Auto) 0.1 Baso # (Auto) 0.15 Absolute Neuts (auto) 5.09 PT 11.2 INR 1.01 APTT 33.0 Sodium 145 Potassium 4.2 Chloride 107 Carbon Dioxide 23 Anion Gap 19 BUN 8 Creatinine 0.7 L Est GFR ( Amer) > 60 Est GFR (Non-Af Amer) > 60 Random Glucose 83 Calcium 8.7 Phosphorus 4.1 Magnesium 2.1 Total Bilirubin 0.7 AST 428 H D ALT 319 H Alkaline Phosphatase 131 H D Ammonia Lactate Dehydrogenase 896 H Total Creatine Kinase 115 Troponin I < 0.01 Total Protein 8.1 Albumin 4.7 Globulin 3.4 Albumin/Globulin Ratio 1.4 Lipase Urine Color Urine Appearance Urine pH Ur Specific Burney Urine Protein Urine Glucose (UA) Urine Ketones Urine Blood Urine Nitrate Urine Bilirubin Urine Urobilinogen Ur Leukocyte Esterase Urine RBC Urine WBC Ur Epithelial Cells Urine Bacteria Salicylates Urine Opiates Screen Urine Methadone Screen Acetaminophen Ur Barbiturates Screen Ur Phencyclidine Scrn Ur Amphetamines Screen U Benzodiazepines Scrn U Oth Cocaine Metabols U Cannabinoids Screen Alcohol, Quantitative 07/24/18 07/24/18 07/24/18 21:18 21:18 21:18 WBC RBC Hgb Hct MCV MCH MCHC RDW Plt Count MPV Neut % (Auto) Lymph % (Auto) Carbon % (Auto) Eos % (Auto) Baso % (Auto) Lymph # (Auto) Carbon # (Auto) Eos # (Auto) Baso # (Auto) Absolute Neuts (auto) PT INR APTT Sodium Potassium Chloride Carbon Dioxide Anion Gap BUN Creatinine Est GFR ( Amer) Est GFR (Non-Af Amer) Random Glucose Calcium Phosphorus Magnesium Total Bilirubin AST ALT Alkaline Phosphatase Ammonia Lactate Dehydrogenase Total Creatine Kinase Troponin I Total Protein Albumin Globulin Albumin/Globulin Ratio Lipase 456 H Urine Color Urine Appearance Urine pH Ur Specific Burney Urine Protein Urine Glucose (UA) Urine Ketones Urine Blood Urine Nitrate Urine Bilirubin Urine Urobilinogen Ur Leukocyte Esterase Urine RBC Urine WBC Ur Epithelial Cells Urine Bacteria Salicylates < 1 L Urine Opiates Screen Urine Methadone Screen Acetaminophen < 10.0 L Ur Barbiturates Screen Ur Phencyclidine Scrn Ur Amphetamines Screen U Benzodiazepines Scrn U Oth Cocaine Metabols U Cannabinoids Screen Alcohol, Quantitative 380 H* 07/24/18 07/24/18 07/24/18 21:37 21:37 23:17 WBC RBC Hgb Hct MCV MCH MCHC RDW Plt Count MPV Neut % (Auto) Lymph % (Auto) Carbon % (Auto) Eos % (Auto) Baso % (Auto) Lymph # (Auto) Carbon # (Auto) Eos # (Auto) Baso # (Auto) Absolute Neuts (auto) PT INR APTT Sodium Potassium Chloride Carbon Dioxide Anion Gap BUN Creatinine Est GFR ( Amer) Est GFR (Non-Af Amer) Random Glucose Calcium Phosphorus Magnesium Total Bilirubin AST ALT Alkaline Phosphatase Ammonia 9 Lactate Dehydrogenase Total Creatine Kinase Troponin I Total Protein Albumin Globulin Albumin/Globulin Ratio Lipase Urine Color Yellow Urine Appearance Clear Urine pH 6.0 Ur Specific Burney 1.020 Urine Protein Trace H Urine Glucose (UA) Negative Urine Ketones Trace H Urine Blood Negative Urine Nitrate Negative Urine Bilirubin Negative Urine Urobilinogen 1.0 H Ur Leukocyte Esterase Negative Urine RBC None Urine WBC 0 - 2 Ur Epithelial Cells 0 - 2 Urine Bacteria Small Salicylates Urine Opiates Screen Negative Urine Methadone Screen Negative Acetaminophen Ur Barbiturates Screen Negative Ur Phencyclidine Scrn Negative Ur Amphetamines Screen Negative U Benzodiazepines Scrn Positive H U Oth Cocaine Metabols Negative U Cannabinoids Screen Negative Alcohol, Quantitative Attending/Attestation - Attestation I have personally seen and examined this patient.: Yes I have fully participated in the care of the patient.: Yes I have reviewed all pertinent clinical information: Yes Notes (Text): 07/25/18 06:31 Seen and examined. discussed with resident. Seizures likely 2/2 alcohol and or Benzodiazepines withdrawal.
[2018-07-25 07:09] LABS: MEAN CELL VOLUME 97.6 fl (80.0-105.0); MEAN CORPUSCULAR HGB CONC 32.8 g/dl (31.0-37.0); MEAN PLATELET VOLUME 10.3 fl (7.0-11.0); RBC 4.16 10^6/uL (3.5-6.1); RED CELL DISTRIBUTION WIDTH 13.4 % (11.5-14.5); WHITE BLOOD COUNT 4.8 10^3/uL (4.5-11.0)
[2018-07-25 07:13] LABS: HEMOGLOBIN 13.3 g/dL (14.0-18.0)
[2018-07-25 07:33] LABS: ALB/GLOB RATIO 1.4 (1.1-1.8); ALBUMIN 3.5 g/dL (3.0-4.8); ALT/SGPT 252 U/L (7-56); AST/SGOT 313 U/L (17-59); BLOOD UREA NITROGEN 10 mg/dL (7-21); CALCIUM 8.3 mg/dL (8.4-10.5); GFR NON-AFRICAN AMERICAN > 60
--- NOTE | 2018-07-25 08:55 | RAD ---
HISTORY: seizure COMPARISON: Chest x-ray performed 12/27/17 TECHNIQUE: Chest, one view. FINDINGS: LUNGS: No focal consolidation. Please note that chest x-ray has limited sensitivity for the detection of pulmonary masses. PLEURA: No significant pleural effusion identified. No definite pneumothorax . CARDIOVASCULAR: Heart size appears normal limits. No significant atherosclerotic calcification present. OSSEOUS STRUCTURES: No acute osseous abnormality identified. VISUALIZED UPPER ABDOMEN: Mild elevation of the right hemidiaphragm. OTHER FINDINGS: None. IMPRESSION: No focal consolidation.
--- NOTE | 2018-07-25 09:16 | CT ---
Date of service: 07/24/2018 PROCEDURE: CT HEAD WITHOUT CONTRAST. HISTORY: seizure COMPARISON: None available. TECHNIQUE: Axial computed tomography images were obtained through the head/brain without intravenous contrast. Radiation dose: Total exam DLP = 1006.6 mGy-cm. This CT exam was performed using one or more of the following dose reduction techniques: Automated exposure control, adjustment of the mA and/or kV according to patient size, and/or use of iterative reconstruction technique. FINDINGS: HEMORRHAGE: No intracranial hemorrhage. BRAIN: No mass effect or edema. The amin-white matter differentiation appears intact. Please note that MRI with diffusion imaging is more sensitive in the detection of acute ischemic event. VENTRICLES: No hydrocephalus. Marcelino cisterna magna. CALVARIUM: Unremarkable. PARANASAL SINUSES: Unremarkable as visualized. No significant inflammatory changes. MASTOID AIR CELLS: Under aeration and partial opacification of the left mastoid air cells. Correlate clinically for history of mastoiditis. The right mastoid air cells appear clear. OTHER FINDINGS: None. IMPRESSION: No acute intracranial pathology identified. Under aeration and partial opacification of the left mastoid air cells. Correlate clinically for history of mastoiditis. Additional incidental findings as above. Preliminary impression was provided by [employer]. Study marked for PA review. Preliminary impression was provided by [employer].
[2018-07-25 10:54] LABS: HEPATITIS B SURFACE AG Negative (NEGATIVE)
[2018-07-25 11:00] LABS: HEPATITIS A IGM NEGATIVE (NEGATIVE); HEPATITIS B CORE AB NEGATIVE (NEGATIVE)
[2018-07-25 11:12] LABS: HEPATITIS C ANTIBODY NEGATIVE (NEGATIVE)
--- NOTE | 2018-07-25 12:21 | CP.PCM.CON ---
History of Present Illness - History of Present Illness History of Present Illness: Neurology Consultation Note: Consult requested by Dr. Landry The patient is a 28-year-old man with a past medical history of anxiety, alcohol abuse/withdrawal, opioid abuse/withdrawal, and seizures. He had multiple seizures yesterday. Neurology was consulted for alcohol withdrawal seizures. Review of Systems - Review of Systems All systems: reviewed and no additional remarkable complaints except Past Patient History - Infectious Disease Hx of Infectious Diseases: None - Tetanus Immunizations Tetanus Immunization: Up to Date - Past Medical History & Family History Past Medical History?: Yes - Past Social History Smoking Status: Heavy Smoker > 10 Cigarettes Daily - CARDIAC Hx Cardiac Disorders: Yes Hx Heart Murmur: Yes - PULMONARY Hx Tuberculosis: No - NEUROLOGICAL Hx Neurological Disorder: Yes Hx Seizures: Yes (4 yr ago r/t benzo withdrawal) - HEENT Hx HEENT Problems: Yes Hx Deafness: Yes (Left ear) - RENAL Hx Chronic Kidney Disease: No - ENDOCRINE/METABOLIC Hx Endocrine Disorders: No - HEMATOLOGICAL/ONCOLOGICAL Hx Cancer: No - INTEGUMENTARY Hx Dermatological Problems: No - MUSCULOSKELETAL/RHEUMATOLOGICAL Hx Falls: No - GASTROINTESTINAL Hx Pancreatitis: Yes - GENITOURINARY/GYNECOLOGICAL Hx Sexually Transmitted Disorders: No - PSYCHIATRIC Hx Depression: No Hx Emotional Abuse: No Hx Physical Abuse: No Hx Substance Use: Yes (pain killers, heroin, crack, cocaine, ecstasy, kaykay, but pt claimed he sto) - SURGICAL HISTORY Hx Tonsillectomy: Yes Other/Comment: L ear tubes - ANESTHESIA Hx Anesthesia: Yes Hx Anesthesia Reactions: No Hx Malignant Hyperthermia: No Meds Allergies/Adverse Reactions: Allergies Allergy/AdvReac Type Severity Reaction Status Date / Time Penicillins Allergy RASH Verified 07/24/18 20:50 - Medications Medications: Current Medications Famotidine (Pepcid) 40 mg PO HS [facility] Folic Acid (Folic Acid) 1 mg PO DAILY [facility] Last Admin: 07/25/18 10:02 Dose: 1 mg Lorazepam (Ativan) 2 mg IVP Q4H [facility]; Protocol Last Admin: 07/25/18 08:24 Dose: 2 mg Lorazepam (Ativan) 1 mg IVP Q2H PRN; Protocol PRN Reason: Symptoms of alcohol withdrawl Last Admin: 07/25/18 10:26 Dose: 1 mg Multivitamins (Thera Tab) 1 tab PO 0800 [facility] Nicotine (Nicoderm Cq) 1 patch TD DAILY [facility] Last Admin: 07/25/18 10:01 Dose: 1 patch Ondansetron HCl (Zofran Inj) 4 mg IVP Q4H PRN PRN Reason: Nausea/Vomiting Pantoprazole Sodium (Protonix Ec Tab) 40 mg PO 0600 [facility] Thiamine HCl (Vitamin B1 Tab) 100 mg PO DAILY [facility] Last Admin: 07/25/18 10:02 Dose: 100 mg Physical Exam - Constitutional Appears: Well - Head Exam Head Exam: ATRAUMATIC, NORMAL INSPECTION, NORMOCEPHALIC - Eye Exam Eye Exam: EOMI, Normal appearance, PERRL Pupil Exam: NORMAL ACCOMODATION, PERRL - ENT Exam ENT Exam: Mucous Membranes Moist, Normal Exam - Neck Exam Neck exam: Positive for: Normal Inspection - Respiratory Exam Respiratory Exam: Clear to Auscultation Bilateral, NORMAL BREATHING PATTERN - Cardiovascular Exam Cardiovascular Exam: REGULAR RHYTHM - GI/Abdominal Exam GI & Abdominal Exam: Normal Bowel Sounds, Soft. absent: Tenderness - Extremities Exam Extremities exam: Positive for: normal inspection - Back Exam Back exam: NORMAL INSPECTION - Neurological Exam Neurological exam: Alert, CN II-XII Intact, Normal Gait, Oriented x3, Reflexes Normal - Psychiatric Exam Psychiatric exam: Normal Affect, Normal Mood - Skin Skin Exam: Dry, Intact, Normal Color, Warm Results - Vital Signs Recent Vital Signs: Last Vital Signs Temp 98.3 F 07/25/18 12:00 Pulse 76 07/25/18 12:00 Resp 18 07/25/18 12:00 BP 143/77 07/25/18 12:00 Pulse Ox 98 07/25/18 06:00 - Labs Result Diagrams: 07/25/18 06:40 07/25/18 06:40 Labs: Laboratory Results - last 24 hr 07/24/18 07/24/18 07/24/18 21:18 21:18 21:18 WBC 9.0 D RBC 4.96 Hgb 16.8 Hct 48.3 MCV 97.4 MCH 33.9 MCHC 34.8 RDW 13.5 Plt Count 200 MPV 10.2 Neut % (Auto) 56.6 Lymph % (Auto) 36.0 H Pacific % (Auto) 4.9 Eos % (Auto) 0.8 L Baso % (Auto) 1.7 Lymph # (Auto) 3.2 [place] # (Auto) 0.4 Eos # (Auto) 0.1 Baso # (Auto) 0.15 Absolute Neuts (auto) 5.09 PT 11.2 INR 1.01 APTT 33.0 Sodium 145 Potassium 4.2 Chloride 107 Carbon Dioxide 23 Anion Gap 19 BUN 8 Creatinine 0.7 L Est GFR ( Amer) > 60 Est GFR (Non-Af Amer) > 60 Random Glucose 83 Calcium 8.7 Phosphorus 4.1 Magnesium 2.1 Total Bilirubin 0.7 AST 428 H D ALT 319 H Alkaline Phosphatase 131 H D Ammonia Lactate Dehydrogenase 896 H Total Creatine Kinase 115 Troponin I < 0.01 Total Protein 8.1 Albumin 4.7 Globulin 3.4 Albumin/Globulin Ratio 1.4 Lipase Urine Color Urine Appearance Urine pH Ur Specific [place] Urine Protein Urine Glucose (UA) Urine Ketones Urine Blood Urine Nitrate Urine Bilirubin Urine Urobilinogen Ur Leukocyte Esterase Urine RBC Urine WBC Ur Epithelial Cells Urine Bacteria Salicylates Urine Opiates Screen Urine Methadone Screen Acetaminophen Ur Barbiturates Screen Ur Phencyclidine Scrn Ur Amphetamines Screen U Benzodiazepines Scrn U Oth Cocaine Metabols U Cannabinoids Screen Alcohol, Quantitative Hepatitis A IgM Ab Hep Bs Antigen Hep B Core IgM Ab Hepatitis C Antibody 07/24/18 07/24/18 07/24/18 21:18 21:18 21:18 WBC RBC Hgb Hct MCV MCH MCHC RDW Plt Count MPV Neut % (Auto) Lymph % (Auto) Pacific % (Auto) Eos % (Auto) Baso % (Auto) Lymph # (Auto) [place] # (Auto) Eos # (Auto) Baso # (Auto) Absolute Neuts (auto) PT INR APTT Sodium Potassium Chloride Carbon Dioxide Anion Gap BUN Creatinine Est GFR ( Amer) Est GFR (Non-Af Amer) Random Glucose Calcium Phosphorus Magnesium Total Bilirubin AST ALT Alkaline Phosphatase Ammonia Lactate Dehydrogenase Total Creatine Kinase Troponin I Total Protein Albumin Globulin Albumin/Globulin Ratio Lipase 456 H Urine Color Urine Appearance Urine pH Ur Specific [place] Urine Protein Urine Glucose (UA) Urine Ketones Urine Blood Urine Nitrate Urine Bilirubin Urine Urobilinogen Ur Leukocyte Esterase Urine RBC Urine WBC Ur Epithelial Cells Urine Bacteria Salicylates < 1 L Urine Opiates Screen Urine Methadone Screen Acetaminophen < 10.0 L Ur Barbiturates Screen Ur Phencyclidine Scrn Ur Amphetamines Screen U Benzodiazepines Scrn U Oth Cocaine Metabols U Cannabinoids Screen Alcohol, Quantitative 380 H* Hepatitis A IgM Ab Hep Bs Antigen Hep B Core IgM Ab Hepatitis C Antibody 07/24/18 07/24/18 07/24/18 21:18 21:37 21:37 WBC RBC Hgb Hct MCV MCH MCHC RDW Plt Count MPV Neut % (Auto) Lymph % (Auto) Pacific % (Auto) Eos % (Auto) Baso % (Auto) Lymph # (Auto) [place] # (Auto) Eos # (Auto) Baso # (Auto) Absolute Neuts (auto) PT INR APTT Sodium Potassium Chloride Carbon Dioxide Anion Gap BUN Creatinine Est GFR ( Amer) Est GFR (Non-Af Amer) Random Glucose Calcium Phosphorus Magnesium Total Bilirubin AST ALT Alkaline Phosphatase Ammonia Lactate Dehydrogenase Total Creatine Kinase Troponin I Total Protein Albumin Globulin Albumin/Globulin Ratio Lipase Urine Color Yellow Urine Appearance Clear Urine pH 6.0 Ur Specific [place] 1.020 Urine Protein Trace H Urine Glucose (UA) Negative Urine Ketones Trace H Urine Blood Negative Urine Nitrate Negative Urine Bilirubin Negative Urine Urobilinogen 1.0 H Ur Leukocyte Esterase Negative Urine RBC None Urine WBC 0 - 2 Ur Epithelial Cells 0 - 2 Urine Bacteria Small Salicylates Urine Opiates Screen Negative Urine Methadone Screen Negative Acetaminophen Ur Barbiturates Screen Negative Ur Phencyclidine Scrn Negative Ur Amphetamines Screen Negative U Benzodiazepines Scrn Positive H U Oth Cocaine Metabols Negative U Cannabinoids Screen Negative Alcohol, Quantitative Hepatitis A IgM Ab Negative Hep Bs Antigen Negative Hep B Core IgM Ab Negative Hepatitis C Antibody Negative 07/24/18 07/25/18 07/25/18 23:17 06:40 06:40 WBC 4.8 D RBC 4.16 Hgb 13.3 L D Hct 40.6 L MCV 97.6 MCH 32.0 MCHC 32.8 RDW 13.4 Plt Count 148 MPV 10.3 Neut % (Auto) Lymph % (Auto) Pacific % (Auto) Eos % (Auto) Baso % (Auto) Lymph # (Auto) [place] # (Auto) Eos # (Auto) Baso # (Auto) Absolute Neuts (auto) PT INR APTT Sodium 140 Potassium 3.8 Chloride 105 Carbon Dioxide 24 Anion Gap 15 BUN 10 Creatinine 0.7 L Est GFR ( Amer) > 60 Est GFR (Non-Af Amer) > 60 Random Glucose 69 L Calcium 8.3 L Phosphorus 4.8 H Magnesium 1.9 Total Bilirubin 0.5 AST 313 H D ALT 252 H Alkaline Phosphatase 79 Ammonia 9 Lactate Dehydrogenase Total Creatine Kinase Troponin I Total Protein 6.1 Albumin 3.5 Globulin 2.6 Albumin/Globulin Ratio 1.4 Lipase Urine Color Urine Appearance Urine pH Ur Specific [place] Urine Protein Urine Glucose (UA) Urine Ketones Urine Blood Urine Nitrate Urine Bilirubin Urine Urobilinogen Ur Leukocyte Esterase Urine RBC Urine WBC Ur Epithelial Cells Urine Bacteria Salicylates Urine Opiates Screen Urine Methadone Screen Acetaminophen Ur Barbiturates Screen Ur Phencyclidine Scrn Ur Amphetamines Screen U Benzodiazepines Scrn U Oth Cocaine Metabols U Cannabinoids Screen Alcohol, Quantitative Hepatitis A IgM Ab Hep Bs Antigen Hep B Core IgM Ab Hepatitis C Antibody Assessment & Plan (1) Seizure Assessment and Plan: No focal deficits. No underlying neurologic condition to explain seizures. Likely from alcohol withdrawal. 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 Consider using a longer acting benzodiazepine such as Valium or Klonapin. Thank you. Status: Acute
--- NOTE | 2018-07-25 14:08 | CP.PCM.PN ---
<Shraddha Smyth - Last Filed: 07/25/18 13:52> Subjective - Date & Time of Evaluation Date of Evaluation: 07/25/18 Time of Evaluation: 13:52 - Subjective Subjective: Shraddha Smyth, PGY-1, Internal Medicine Progress Note for Dr. Landry Patient seen and evaluated at bedside. Patient had no acute overnight events. Patient reports tremors but denies headache, blurry vision, heart palpitations, shortness of breath, nausea, vomiting, constipation, diarrhea, dysuria, hematuria. 12-point ROS was unremarkable except for what was mentioned above. Objective - Vital Signs/Intake and Output Vital Signs (last 24 hours): Temp Pulse Resp BP Pulse Ox 98.3 F 76 18 143/77 98 07/25/18 12:00 07/25/18 12:00 07/25/18 12:00 07/25/18 12:00 07/25/18 06:00 Intake and Output: 07/25/18 07/25/18 06:59 18:59 Intake Total 720 Balance 720 - Medications Medications: Current Medications Diazepam (Valium) 10 mg PO Q6H [facility]; Protocol Diazepam (Valium) 10 mg PO Q4H PRN; Protocol PRN Reason: Symptoms of alcohol withdrawl Famotidine (Pepcid) 40 mg PO HS [facility] Folic Acid (Folic Acid) 1 mg PO DAILY [facility] Last Admin: 07/25/18 10:02 Dose: 1 mg Multivitamins (Thera Tab) 1 tab PO 0800 [facility] Nicotine (Nicoderm Cq) 1 patch TD DAILY [facility] Last Admin: 07/25/18 10:01 Dose: 1 patch Ondansetron HCl (Zofran Inj) 4 mg IVP Q4H PRN PRN Reason: Nausea/Vomiting Pantoprazole Sodium (Protonix Ec Tab) 40 mg PO 0600 [facility] Thiamine HCl (Vitamin B1 Tab) 100 mg PO DAILY [facility] Last Admin: 07/25/18 10:02 Dose: 100 mg - Labs Labs: 07/25/18 06:40 07/25/18 06:40 PT 11.2 SECONDS (9.4-12.5) 07/24/18 21:18 INR 1.01 07/24/18 21:18 APTT 33.0 Seconds (26.9-38.3) 07/24/18 21:18 - Constitutional Appears: Well, Non-toxic, No Acute Distress - Head Exam Head Exam: ATRAUMATIC, NORMAL INSPECTION, NORMOCEPHALIC - Eye Exam Eye Exam: EOMI, PERRL - ENT Exam ENT Exam: Mucous Membranes Moist, Normal Exam - Respiratory Exam Respiratory Exam: Clear to Ausculation Bilateral, NORMAL BREATHING PATTERN - Cardiovascular Exam Cardiovascular Exam: REGULAR RHYTHM, RRR, +S1, +S2. absent: Clicks, Gallop, Rubs - GI/Abdominal Exam GI & Abdominal Exam: Soft, Normal Bowel Sounds. absent: Distended, Firm, Guarding, Tenderness - Extremities Exam Extremities Exam: Full ROM, Normal Capillary Refill, Normal Inspection. absent: Pedal Edema - Neurological Exam Neurological Exam: Alert, Awake, CN II-XII Intact, Oriented x3 - Psychiatric Exam Psychiatric exam: Normal Affect, Normal Mood - Skin Skin Exam: Dry, Intact, Normal Color Assessment and Plan - Assessment and Plan (Free Text) Assessment: 28 year old male with past medical history of anxiety, alcohol abuse/withdrawal, opiod abuse/withdrawal, and seizures presented with multiple seizures and alcohol withdrawal. Plan: Questionable Tonic-Clonic Seizures -Started valium 10 Q6 and 10 Q4 PRN -As per neurology, no focal deficits or underlying neurologic condition to explain seizures and reports that seizures are likely from alcohol withdrawal. As a result, will continue to treat for alcohol withdrawal -Head CT: no acute intracranial pathology -Seizure precautions -Fall precautions Alcohol withdrawal -CIWA protocol initiated -CIWA has been 1, 5, 6, 10 -Transaminitis improved -Started Valium 10 mg Q6 and 10 mg Q4 PRN -Continue with MVI, thiamine, and folate -Zofran 4 mg Q4PRN for nausea -Seizure precautions -Fall precautions -Counseled patient regarding alcohol cessation Tobacco abuse -Nicotine patch -Counseled patient regarding tobacco abuse Polysubstance abuse -History of abuse of cocaine, opiods -Has stopped using substances at this time GI prophylaxis: protonix DVT prophylaxis: SCD Patient plan discussed with Dr. Landry <Beto Landry - Last Filed: 07/27/18 14:20> Objective - Vital Signs/Intake and Output Vital Signs (last 24 hours): Temp Pulse Resp BP Pulse Ox 97 F L 88 20 132/92 H 99 07/27/18 05:37 07/27/18 05:37 07/27/18 05:37 07/27/18 05:37 07/27/18 05:37 Intake and Output: 07/27/18 07/27/18 06:59 18:59 Intake Total 420 Balance 420 - Labs Labs: 07/27/18 06:30 07/27/18 06:30 PT 11.2 SECONDS (9.4-12.5) 07/24/18 21:18 INR 1.01 07/24/18 21:18 APTT 33.0 Seconds (26.9-38.3) 07/24/18 21:18 Attending/Attestation - Attestation I have personally seen and examined this patient.: Yes I have fully participated in the care of the patient.: Yes I have reviewed all pertinent clinical information, including history, physical exam and plan: Yes Notes (Text): 07/27/18 14:13 Patient was seen and examined with medical coder Patient did not has any seizure.He was having shaking due to alcohol withdrawal. 28 year old male with past medical history of anxiety, alcohol abuse/withdrawal, opiod abuse/withdrawal, is admitted with alcohol withdrawal and elevated LFT. Continue CIWA Protocol for alcohol withdrawal. Monitor LFT, Avoid hepatotoxic medication. Issue of ongoing alcohol abuse was discussed in detail with the patient. Management plan was discussed in detail with patient. Education was provided.
--- NOTE | 2018-07-25 15:37 | US ---
HISTORY: RUQ US COMPARISON: Abdominal ultrasound performed 06/06/18 TECHNIQUE: Sonographic evaluation of the abdomen. FINDINGS: LIVER: Measures 16.4 cm in sagittal dimension. Echogenic liver may be seen in setting of hepatic parenchymal disease or fatty infiltration. No focal hepatic mass identified. The main portal vein appears patent with normal directional flow. No intrahepatic bile duct dilatation. GALLBLADDER: No gallstones. No gallbladder wall thickening. Negative sonographic Nieves's sign as assessed by the quality assurance supervisor. COMMON BILE DUCT: Measures 4 mm. PANCREAS: Not well visualized. RIGHT KIDNEY: Measures 12.2 x 4.2 x 6.2cm. No obstructing calculus or hydronephrosis identified. LEFT KIDNEY: Measures 11.5 x 5.2 x 5.9cm. No obstructing calculus or hydronephrosis identified. SPLEEN: Measures approximately 12.6 cm. AORTA: Limited views appear unremarkable. IVC: Limited views appear unremarkable. OTHER FINDINGS: None. IMPRESSION: Echogenic liver may be seen in setting of hepatic parenchymal disease or fatty infiltration. Splenomegaly.
--- NOTE | 2018-07-25 15:50 | CARD ---
APPROVED REPORT Date of service: 07/24/2018 EKG Measurement Heart [id number] <Conclusion> Sinus tachycardia Rightward axis Borderline ECG
[2018-07-26] MEDS: Pantoprazole 40 mg EC Tab PO SCH (06:10)
[2018-07-26] MEDS: Multivitamin Therapeutic Tab PO SCH (08:38)
[2018-07-26 09:18] LABS: BASO # 0.06 K/mm3 (0.0-2.0); BASO % 0.9 % (0.0-3.0); EOS # 0.1 (0.0-0.7); EOS % 1.8 % (1.5-5.0); HEMOGLOBIN 14.2 g/dL (14.0-18.0); LYMPH # 0.8 (1.2-3.4); LYMPH % 12.1 % (22.0-35.0); MEAN CELL VOLUME 95.8 fl (80.0-105.0); MEAN CORPUSCULAR HEMOGLOBIN 32.9 pg (25.0-35.0); MEAN CORPUSCULAR HGB CONC 34.4 g/dl (31.0-37.0); MEAN PLATELET VOLUME 10.5 fl (7.0-11.0); MONO # 0.6 (0.1-0.6); MONO % 8.7 % (1.0-6.0); RBC 4.31 10^6/uL (3.5-6.1); RED CELL DISTRIBUTION WIDTH 13.2 % (11.5-14.5); WHITE BLOOD COUNT 6.8 10^3/uL (4.5-11.0)
[2018-07-26 09:30] LABS: ALB/GLOB RATIO 1.4 (1.1-1.8); ALBUMIN 4.3 g/dL (3.0-4.8); ALT/SGPT 353 U/L (7-56); AST/SGOT 547 U/L (17-59); BLOOD UREA NITROGEN 8 mg/dL (7-21); CALCIUM 9.3 mg/dL (8.4-10.5); GFR NON-AFRICAN AMERICAN > 60
--- NOTE | 2018-07-26 15:12 | CP.PCM.PN ---
<Shraddha Smyth - Last Filed: 07/26/18 15:06> Subjective - Date & Time of Evaluation Date of Evaluation: 07/26/18 Time of Evaluation: 15:06 - Subjective Subjective: Shraddha Smyth, PGY-1, Internal Medicine Progress Note for Dr. Landry Patient seen and evaluated at bedside. Patient had cold sweats overnight. Patient reports tremors today but denies heart palpitations, headaches, seizures, nausea, vomiting, or any other symptoms at this time. 12-point ROS was unremarkable except for what was mentioned above. Objective - Vital Signs/Intake and Output Vital Signs (last 24 hours): Temp Pulse Resp BP Pulse Ox 98.0 F 93 H 18 142/82 98 07/26/18 12:00 07/26/18 12:00 07/26/18 12:00 07/26/18 12:00 07/26/18 08:00 Intake and Output: 07/26/18 07/26/18 06:59 18:59 Intake Total 480 Balance 480 - Medications Medications: Current Medications Folic Acid (Folic Acid) 1 mg PO DAILY [facility] Last Admin: 07/26/18 09:11 Dose: 1 mg Lorazepam (Ativan) 1 mg IVP Q8H PRN; Protocol PRN Reason: Symptoms of alcohol withdrawl Last Admin: 07/26/18 12:23 Dose: 1 mg Multivitamins (Thera Tab) 1 tab PO 0800 [facility] Last Admin: 07/26/18 08:38 Dose: 1 tab Nicotine (Nicoderm Cq) 1 patch TD DAILY [facility] Last Admin: 07/26/18 11:37 Dose: Not Given Ondansetron HCl (Zofran Inj) 4 mg IVP Q4H PRN PRN Reason: Nausea/Vomiting Pantoprazole Sodium (Protonix Ec Tab) 40 mg PO 0600 [facility] Last Admin: 07/26/18 06:10 Dose: 40 mg Thiamine HCl (Vitamin B1 Tab) 100 mg PO DAILY [facility] Last Admin: 07/26/18 09:10 Dose: 100 mg - Labs Labs: 07/26/18 09:00 07/26/18 09:00 PT 11.2 SECONDS (9.4-12.5) 07/24/18 21:18 INR 1.01 07/24/18 21:18 APTT 33.0 Seconds (26.9-38.3) 07/24/18 21:18 - Constitutional Appears: Well, Non-toxic, No Acute Distress - Head Exam Head Exam: ATRAUMATIC, NORMAL INSPECTION, NORMOCEPHALIC - Eye Exam Eye Exam: EOMI, PERRL - ENT Exam ENT Exam: Mucous Membranes Moist, Normal Exam - Respiratory Exam Respiratory Exam: Clear to Ausculation Bilateral, NORMAL BREATHING PATTERN - Cardiovascular Exam Cardiovascular Exam: REGULAR RHYTHM, RRR, +S1, +S2. absent: Clicks, Gallop, Rubs - GI/Abdominal Exam GI & Abdominal Exam: Soft, Normal Bowel Sounds. absent: Distended, Firm, Guarding, Tenderness - Extremities Exam Extremities Exam: Full ROM, Normal Capillary Refill, Normal Inspection. absent: Pedal Edema - Neurological Exam Neurological Exam: Alert, Awake, CN II-XII Intact, Oriented x3 - Psychiatric Exam Psychiatric exam: Normal Affect, Normal Mood - Skin Skin Exam: Dry, Intact, Normal Color Assessment and Plan - Assessment and Plan (Free Text) Assessment: 28 year old male with past medical history of anxiety, alcohol abuse/withdrawal, opiod abuse/withdrawal, and seizures presented with multiple seizures and alcohol withdrawal. Plan: Questionable Tonic-Clonic Seizures -Switched to ativan 1 mg Q8 PRN -As per neurology, no focal deficits or underlying neurologic condition to e xplain seizures and reports that seizures are likely from alcohol withdrawal. As a result, will continue to treat for alcohol withdrawal -Head CT: no acute intracranial pathology -Seizure precautions -Fall precautions Alcohol withdrawal -CIWA protocol -CIWA has been 4, 4, 9, 2, 3 -Transaminitis worsened -Switched to ativan 1 mg Q8 PRN for withdrawal symptoms -Continue with MVI, thiamine, and folate -Zofran 4 mg Q4PRN for nausea -Seizure precautions -Fall precautions -Counseled patient regarding alcohol cessation Abdominal pain likely 2/2 to gastritis from alcohol use vs. hepatomegaly -Right upper quadrant ultrasound: echogenic liver seen in setting of hepatic parenchymal disease or fatty infiltration, splenomegaly -LFTs are trending up at this time. Likely alcohol induced but cannot rule out other causes. -Hepatitis panel negative -SELINA, smooth muscle antibody ordered for further evaluation of elevated LFTs -Dr. De La Cruz, GI, consulted for further recommendations. Tobacco abuse -Nicotine patch -Counseled patient regarding tobacco abuse Polysubstance abuse -History of abuse of cocaine, opiods -Has stopped using substances at this time GI prophylaxis: protonix DVT prophylaxis: SCD Patient plan discussed with Dr. Landry <Beto Landry - Last Filed: 07/27/18 14:11> Objective - Vital Signs/Intake and Output Vital Signs (last 24 hours): Temp Pulse Resp BP Pulse Ox 97 F L 88 20 132/92 H 99 07/27/18 05:37 07/27/18 05:37 07/27/18 05:37 07/27/18 05:37 07/27/18 05:37 Intake and Output: 07/27/18 07/27/18 06:59 18:59 Intake Total 420 Balance 420 - Labs Labs: 07/27/18 06:30 07/27/18 06:30 PT 11.2 SECONDS (9.4-12.5) 07/24/18 21:18 INR 1.01 07/24/18 21:18 APTT 33.0 Seconds (26.9-38.3) 07/24/18 21:18 Attending/Attestation - Attestation I have personally seen and examined this patient.: Yes I have fully participated in the care of the patient.: Yes I have reviewed all pertinent clinical information, including history, physical exam and plan: Yes Notes (Text): 07/27/18 13:58 Patient was seen and examined with back office medical assistant Patient did not has any seizure.He was having shaking due to alcohol withdrawal. 28 year old male with past medical history of anxiety, alcohol abuse/withdrawal, opiod abuse/withdrawal, was admitted with alcohol withdrawal and elevated LFT.Patient alcohol withdrawal are better but LFT are getting worse. We will get Right upper quadrant USG and will get GI consult. Avoid Acetaminophen and hepatotoxic medication. Avoid hypotension. Continue CIWA Protocol for alcohol withdrawal. Management plan was discussed in detail with patient. Education was provided. 07/27/18 14:08
[2018-07-26 17:04] LABS: HEPATITIS B SURFACE AG Negative (NEGATIVE)
[2018-07-26 17:10] LABS: HEPATITIS A IGM NEGATIVE (NEGATIVE); HEPATITIS B CORE AB NEGATIVE (NEGATIVE)
[2018-07-26 17:21] LABS: HEPATITIS C ANTIBODY NEGATIVE (NEGATIVE)
[2018-07-26 23:53] VITALS: RESP 20
[2018-07-27] MEDS: Pantoprazole 40 mg EC Tab PO SCH (05:07)
[2018-07-27 05:38] VITALS: BP 132/92; PULSE 88; TEMP 97; O2SAT 99
[2018-07-27 07:09] LABS: ALB/GLOB RATIO 1.5 (1.1-1.8); ALBUMIN 4.4 g/dL (3.0-4.8); ALT/SGPT 548 U/L (7-56); BLOOD UREA NITROGEN 7 mg/dL (7-21); CALCIUM 9.7 mg/dL (8.4-10.5); GFR NON-AFRICAN AMERICAN > 60
[2018-07-27 07:10] LABS: BASO # 0.08 K/mm3 (0.0-2.0); BASO % 1.6 % (0.0-3.0); EOS # 0.3 (0.0-0.7); EOS % 5.1 % (1.5-5.0); HEMOGLOBIN 14.6 g/dL (14.0-18.0); LYMPH % 18.9 % (22.0-35.0); MEAN CELL VOLUME 95.5 fl (80.0-105.0); MEAN CORPUSCULAR HEMOGLOBIN 32.6 pg (25.0-35.0); MEAN CORPUSCULAR HGB CONC 34.1 g/dl (31.0-37.0); MEAN PLATELET VOLUME 10.9 fl (7.0-11.0); MONO # 0.5 (0.1-0.6); MONO % 9.5 % (1.0-6.0); RBC 4.48 10^6/uL (3.5-6.1); RED CELL DISTRIBUTION WIDTH 13.3 % (11.5-14.5); WHITE BLOOD COUNT 5.1 10^3/uL (4.5-11.0)
[2018-07-27 07:27] LABS: AST/SGOT 796 U/L (17-59)
[2018-07-27] MEDS: Multivitamin Therapeutic Tab PO SCH (08:19)
--- NOTE | 2018-07-27 12:52 | CP.PCM.DIS ---
<WaltersauravShraddha - Last Filed: 07/27/18 12:36> Provider - Provider Date of Admission: 07/24/18 22:30 Attending physician: Beto Landry MD Consults: 07/24/18 23:10 Neurology Consult Stat Comment: Consulting Provider: Naman Fong Consulting Physician: Naman Fong Reason for Consult: Seizure; alcohol withdrawal 07/24/18 23:41 Social Work Referral Routine Comment: rehab referral Physician Instructions: Reason For Exam: Rehab referral 07/26/18 10:47 Physician Consult Routine Comment: Consulting Provider: J Carlos De La Cruz Consulting Physician: J Carlos De La Cruz Reason for Consult: transaminitis in setting of hx of pancreatitis, etoh abuse Time Spent in preparation of Discharge (in minutes): 60 Hospital Course - Lab Results Lab Results: Most Recent Lab Values WBC 5.1 10^3/uL (4.5-11.0) D 07/27/18 06:30 RBC 4.48 10^6/uL (3.5-6.1) 07/27/18 06:30 Hgb 14.6 g/dL (14.0-18.0) 07/27/18 06:30 Hct 42.8 % (42.0-52.0) 07/27/18 06:30 MCV 95.5 fl (80.0-105.0) 07/27/18 06:30 MCH 32.6 pg (25.0-35.0) 07/27/18 06:30 MCHC 34.1 g/dl (31.0-37.0) 07/27/18 06:30 RDW 13.3 % (11.5-14.5) 07/27/18 06:30 Plt Count 150 10^3/uL (120.0-450.0) 07/27/18 06:30 MPV 10.9 fl (7.0-11.0) 07/27/18 06:30 Neut % (Auto) 64.9 % (50.0-68.0) 07/27/18 06:30 Lymph % (Auto) 18.9 % (22.0-35.0) L 07/27/18 06:30 Garden % (Auto) 9.5 % (1.0-6.0) H 07/27/18 06:30 Eos % (Auto) 5.1 % (1.5-5.0) H 07/27/18 06:30 Baso % (Auto) 1.6 % (0.0-3.0) 07/27/18 06:30 Lymph # (Auto) 1.0 (1.2-3.4) L 07/27/18 06:30 Garden # (Auto) 0.5 (0.1-0.6) 07/27/18 06:30 Eos # (Auto) 0.3 (0.0-0.7) 07/27/18 06:30 Baso # (Auto) 0.08 K/mm3 (0.0-2.0) 07/27/18 06:30 Absolute Neuts (auto) 3.34 (1.4-6.5) 07/27/18 06:30 PT 11.2 SECONDS (9.4-12.5) 07/24/18 21:18 INR 1.01 07/24/18 21:18 APTT 33.0 Seconds (26.9-38.3) 07/24/18 21:18 Sodium 142 mmol/L (132-148) 07/27/18 06:30 Potassium 3.6 mmol/L (3.6-5.0) 07/27/18 06:30 Chloride 104 mmol/L (98-107) 07/27/18 06:30 Carbon Dioxide 24 mmol/L (21-33) 07/27/18 06:30 Anion Gap 17 (10-20) 07/27/18 06:30 BUN 7 mg/dL (7-21) 07/27/18 06:30 Creatinine 0.6 mg/dl (0.8-1.5) L 07/27/18 06:30 Est GFR ( Amer) > 60 07/27/18 06:30 Est GFR (Non-Af Amer) > 60 07/27/18 06:30 Random Glucose 100 mg/dL (70-110) 07/27/18 06:30 Calcium 9.7 mg/dL (8.4-10.5) 07/27/18 06:30 Phosphorus 4.8 mg/dL (2.5-4.5) H 07/25/18 06:40 Magnesium 1.9 mg/dL (1.7-2.2) 07/25/18 06:40 Total Bilirubin 1.5 mg/dL (0.2-1.3) H 07/27/18 06:30 Direct Bilirubin 0.6 mg/dL (0.0-0.4) H 07/27/18 07:00 AST 796 U/L (17-59) H D 07/27/18 06:30 ALT 548 U/L (7-56) H 07/27/18 06:30 Alkaline Phosphatase 92 U/L (38-126) 07/27/18 06:30 Ammonia 9 umol/L (9-33) 07/24/18 23:17 Lactate Dehydrogenase 896 U/L (333-699) H 07/24/18 21:18 Total Creatine Kinase 115 U/L (35-230) 07/24/18 21:18 Troponin I < 0.01 ng/mL 07/24/18 21:18 Total Protein 7.4 g/dL (5.8-8.3) 07/27/18 06:30 Albumin 4.4 g/dL (3.0-4.8) 07/27/18 06:30 Globulin 2.9 gm/dL 07/27/18 06:30 Albumin/Globulin Ratio 1.5 (1.1-1.8) 07/27/18 06:30 Lipase 456 U/L (23-300) H 07/24/18 21:18 Urine Color Yellow (YELLOW) 07/24/18 21:37 Urine Appearance Clear (CLEAR) 07/24/18 21:37 Urine pH 6.0 (4.7-8.0) 07/24/18 21:37 Ur Specific [place] 1.020 (1.005-1.035) 07/24/18 21:37 Urine Protein Trace mg/dL (<30 mg/dL) H 07/24/18 21:37 Urine Glucose (UA) Negative mg/dL (NEGATIVE) 07/24/18 21:37 Urine Ketones Trace mg/dL (NEGATIVE) H 07/24/18 21:37 Urine Blood Negative (NEGATIVE) 07/24/18 21:37 Urine Nitrate Negative (NEGATIVE) 07/24/18 21:37 Urine Bilirubin Negative (NEGATIVE) 07/24/18 21:37 Urine Urobilinogen 1.0 E.U./dL (<1 E.U./dL) H 07/24/18 21:37 Ur Leukocyte Esterase Negative Juanjo/uL (NEGATIVE) 07/24/18 21:37 Urine RBC None /hpf (0-2) 07/24/18 21:37 Urine WBC 0 - 2 /hpf (0-6) 07/24/18 21:37 Ur Epithelial Cells 0 - 2 /hpf (0-5) 07/24/18 21:37 Urine Bacteria Small /hpf (NONE) 07/24/18 21:37 Salicylates < 1 mg/dL (2.0-20.0) L 07/24/18 21:18 Urine Opiates Screen Negative (NEGATIVE) 07/24/18 21:37 Urine Methadone Screen Negative (NEGATIVE) 07/24/18 21:37 Acetaminophen < 10.0 ug/ml (10.0-20.0) L 07/24/18 21:18 Ur Barbiturates Screen Negative (NEGATIVE) 07/24/18 21:37 Ur Phencyclidine Scrn Negative (NEGATIVE) 07/24/18 21:37 Ur Amphetamines Screen Negative (NEGATIVE) 07/24/18 21:37 U Benzodiazepines Scrn Positive (NEGATIVE) H 07/24/18 21:37 U Oth Cocaine Metabols Negative (NEGATIVE) 07/24/18 21:37 U Cannabinoids Screen Negative (NEGATIVE) 07/24/18 21:37 Alcohol, Quantitative 380 mg/dL (0-10) H* 07/24/18 21:18 Hepatitis A IgM Ab Negative (NEGATIVE) 07/26/18 11:20 Hep Bs Antigen Negative (NEGATIVE) 07/26/18 11:20 Hep Bs Antibody Positive (NEGATIVE) 07/26/18 11:20 Hep B Core IgM Ab Negative (NEGATIVE) 07/26/18 11:20 Hepatitis C Antibody Negative (NEGATIVE) 07/26/18 11:20 - Hospital Course Hospital Course: Shraddha Smyth, PGY-1, Internal Medicine Discharge Summary for Dr. Landry 28 year old male with past medical history of anxiety, alcohol abuse/withdrawal, opiod abuse/withdrawal, and seizures secondary to alcohol withdrawal presented with multiple seizures 1 days prior to admission and 6 seizures the day of admission. He reports last alcohol beverage was 48 hours prior to admission. Seizures lasted 5-15 seconds. He stated seizures were witnessed by girlfriend. He denied urinary or fecal incontinence and tongue biting. He reported tensing up and shaking during seizures. He had lost consciousness during the seizures. Upon admission, patient was started on CIWA protocol and started on ativan 2 Q4 and 1 Q2 and given banana bag. Alc level on admission was 380. Patient reported tremors and CIWA scores were 1,5,6,10 the following day. He was given MVI, thiamine, and folate. As per neurology, valium was requested and started. Patient's CIWAs continued to generally range from 3-4 and as patient had elevated LFTs, patient was switched to ativan 1 Q8PRN for withdrawal symptoms. For questionable tonic/clonic seizures, Head CT was done which showed no acute abnormalities. Neurology said no focal deficits were present or underlying condition to explains seizures and that they were likely from alcohol withdrawal for patient and had no recommendations for seizures. Seizure and fall precautions were started. Patient had abdominal pain the day after admission. Right upper quadrant ultrasound was performed showing echogenic liver seen in the setting of hepatic parenchymal disease or fatty infiltration and splenomegaly. Hepatitis panel was negative. However, LFTs were trending upwards. Today, AST was 796 and ALT was 548 increased from prior days. As per Dr. De La Cruz, GI, elevated transaminases were likely secondary to alcoholic hepatitis, but other causes could not be ruled out. SELINA, anti-smooth muscle Ab was ordered. Abdominal pain resolved today, but patient continued to be nauseous and had 7-8 episodes of diarrhea yesterday. Diarrhea ceased today. Patient requested to leave AMA. Patient was told the risks of leaving including worsening of liver function, cirrhosis, bleeding, infection, and . Patient was told the benefits of staying including follow up and treatment of liver function. Patient reported understanding of what was told to him and decided to sign out AMA. This is a brief summary of the events that occurred during this hospital visit. For more information, please refer to hospital documentation. Discharge diagnoses Questionable tonic clonic seizures Alcohol withdrawal Abdominal pain likely 2/2 to gastritis Elevated LFTs likely secondary to alcohol use Tobacco abuse - Date & Time of H&P Date of H&P: 07/24/18 Time of H&P: 23:22 Discharge Exam - Head Exam Head Exam: ATRAUMATIC, NORMAL INSPECTION, NORMOCEPHALIC - Eye Exam Eye Exam: EOMI, PERRL - Respiratory Exam Respiratory Exam: Clear to PA & Lateral, NORMAL BREATHING PATTERN - Cardiovascular Exam Cardiovascular Exam: REGULAR RHYTHM, RRR, +S1, +S2. absent: Clicks, Gallop, Rubs - GI/Abdominal Exam GI & Abdominal Exam: Normal Bowel Sounds, Soft. absent: Distended, Firm, Guarding, Tenderness - Extremities Exam Extremities exam: full ROM, normal capillary refill, normal inspection - Neurological Exam Neurological exam: Alert, CN II-XII Intact, Normal Gait, Oriented x3 - Skin Skin Exam: Dry, Intact, Normal Color Discharge Plan - Follow Up Plan Condition: FAIR Disposition: AGAINST MEDICAL ADVICE <Beto Landry - Last Filed: 07/27/18 13:57> Provider - Provider Date of Admission: 07/24/18 22:30 Attending physician: Beto Landry MD Consults: 07/24/18 23:10 Neurology Consult Stat Comment: Consulting Provider: Naman Fong Consulting Physician: Naman Fong Reason for Consult: Seizure; alcohol withdrawal 07/24/18 23:41 Social Work Referral Routine Comment: rehab referral Physician Instructions: Reason For Exam: Rehab referral 07/26/18 10:47 Physician Consult Routine Comment: Consulting Provider: J Carlos De La Cruz Consulting Physician: J Carlos De La Cruz Reason for Consult: transaminitis in setting of hx of pancreatitis, etoh abuse Hospital Course - Lab Results Lab Results: Most Recent Lab Values WBC 5.1 10^3/uL (4.5-11.0) D 07/27/18 06:30 RBC 4.48 10^6/uL (3.5-6.1) 07/27/18 06:30 Hgb 14.6 g/dL (14.0-18.0) 07/27/18 06:30 Hct 42.8 % (42.0-52.0) 07/27/18 06:30 MCV 95.5 fl (80.0-105.0) 07/27/18 06:30 MCH 32.6 pg (25.0-35.0) 07/27/18 06:30 MCHC 34.1 g/dl (31.0-37.0) 07/27/18 06:30 RDW 13.3 % (11.5-14.5) 07/27/18 06:30 Plt Count 150 10^3/uL (120.0-450.0) 07/27/18 06:30 MPV 10.9 fl (7.0-11.0) 07/27/18 06:30 Neut % (Auto) 64.9 % (50.0-68.0) 07/27/18 06:30 Lymph % (Auto) 18.9 % (22.0-35.0) L 07/27/18 06:30 Garden % (Auto) 9.5 % (1.0-6.0) H 07/27/18 06:30 Eos % (Auto) 5.1 % (1.5-5.0) H 07/27/18 06:30 Baso % (Auto) 1.6 % (0.0-3.0) 07/27/18 06:30 Lymph # (Auto) 1.0 (1.2-3.4) L 07/27/18 06:30 Garden # (Auto) 0.5 (0.1-0.6) 07/27/18 06:30 Eos # (Auto) 0.3 (0.0-0.7) 07/27/18 06:30 Baso # (Auto) 0.08 K/mm3 (0.0-2.0) 07/27/18 06:30 Absolute Neuts (auto) 3.34 (1.4-6.5) 07/27/18 06:30 PT 11.2 SECONDS (9.4-12.5) 07/24/18 21:18 INR 1.01 07/24/18 21:18 APTT 33.0 Seconds (26.9-38.3) 07/24/18 21:18 Sodium 142 mmol/L (132-148) 07/27/18 06:30 Potassium 3.6 mmol/L (3.6-5.0) 07/27/18 06:30 Chloride 104 mmol/L (98-107) 07/27/18 06:30 Carbon Dioxide 24 mmol/L (21-33) 07/27/18 06:30 Anion Gap 17 (10-20) 07/27/18 06:30 BUN 7 mg/dL (7-21) 07/27/18 06:30 Creatinine 0.6 mg/dl (0.8-1.5) L 07/27/18 06:30 Est GFR ( Amer) > 60 07/27/18 06:30 Est GFR (Non-Af Amer) > 60 07/27/18 06:30 Random Glucose 100 mg/dL (70-110) 07/27/18 06:30 Calcium 9.7 mg/dL (8.4-10.5) 07/27/18 06:30 Phosphorus 4.8 mg/dL (2.5-4.5) H 07/25/18 06:40 Magnesium 1.9 mg/dL (1.7-2.2) 07/25/18 06:40 Total Bilirubin 1.5 mg/dL (0.2-1.3) H 07/27/18 06:30 Direct Bilirubin 0.6 mg/dL (0.0-0.4) H 07/27/18 07:00 AST 796 U/L (17-59) H D 07/27/18 06:30 ALT 548 U/L (7-56) H 07/27/18 06:30 Alkaline Phosphatase 92 U/L (38-126) 07/27/18 06:30 Ammonia 9 umol/L (9-33) 07/24/18 23:17 Lactate Dehydrogenase 896 U/L (333-699) H 07/24/18 21:18 Total Creatine Kinase 115 U/L (35-230) 07/24/18 21:18 Troponin I < 0.01 ng/mL 07/24/18 21:18 Total Protein 7.4 g/dL (5.8-8.3) 07/27/18 06:30 Albumin 4.4 g/dL (3.0-4.8) 07/27/18 06:30 Globulin 2.9 gm/dL 07/27/18 06:30 Albumin/Globulin Ratio 1.5 (1.1-1.8) 07/27/18 06:30 Lipase 456 U/L (23-300) H 07/24/18 21:18 Urine Color Yellow (YELLOW) 07/24/18 21:37 Urine Appearance Clear (CLEAR) 07/24/18 21:37 Urine pH 6.0 (4.7-8.0) 07/24/18 21:37 Ur Specific [place] 1.020 (1.005-1.035) 07/24/18 21:37 Urine Protein Trace mg/dL (<30 mg/dL) H 07/24/18 21:37 Urine Glucose (UA) Negative mg/dL (NEGATIVE) 07/24/18 21:37 Urine Ketones Trace mg/dL (NEGATIVE) H 07/24/18 21:37 Urine Blood Negative (NEGATIVE) 07/24/18 21:37 Urine Nitrate Negative (NEGATIVE) 07/24/18 21:37 Urine Bilirubin Negative (NEGATIVE) 07/24/18 21:37 Urine Urobilinogen 1.0 E.U./dL (<1 E.U./dL) H 07/24/18 21:37 Ur Leukocyte Esterase Negative Juanjo/uL (NEGATIVE) 07/24/18 21:37 Urine RBC None /hpf (0-2) 07/24/18 21:37 Urine WBC 0 - 2 /hpf (0-6) 07/24/18 21:37 Ur Epithelial Cells 0 - 2 /hpf (0-5) 07/24/18 21:37 Urine Bacteria Small /hpf (NONE) 07/24/18 21:37 Salicylates < 1 mg/dL (2.0-20.0) L 07/24/18 21:18 Urine Opiates Screen Negative (NEGATIVE) 07/24/18 21:37 Urine Methadone Screen Negative (NEGATIVE) 07/24/18 21:37 Acetaminophen < 10.0 ug/ml (10.0-20.0) L 07/24/18 21:18 Ur Barbiturates Screen Negative (NEGATIVE) 07/24/18 21:37 Ur Phencyclidine Scrn Negative (NEGATIVE) 07/24/18 21:37 Ur Amphetamines Screen Negative (NEGATIVE) 07/24/18 21:37 U Benzodiazepines Scrn Positive (NEGATIVE) H 07/24/18 21:37 U Oth Cocaine Metabols Negative (NEGATIVE) 07/24/18 21:37 U Cannabinoids Screen Negative (NEGATIVE) 07/24/18 21:37 Alcohol, Quantitative 380 mg/dL (0-10) H* 07/24/18 21:18 Hepatitis A IgM Ab Negative (NEGATIVE) 07/26/18 11:20 Hep Bs Antigen Negative (NEGATIVE) 07/26/18 11:20 Hep Bs Antibody Positive (NEGATIVE) 07/26/18 11:20 Hep B Core IgM Ab Negative (NEGATIVE) 07/26/18 11:20 Hepatitis C Antibody Negative (NEGATIVE) 07/26/18 11:20 Attending/Attestation - Attestation I have personally seen and examined this patient.: Yes I have fully participated in the care of the patient.: Yes I have reviewed all pertinent clinical information, including history, physical exam and plan: Yes Notes (Text): 07/27/18 13:50 Patient was seen and examined with medical officer. 28 year old male with past medical history of anxiety, alcohol abuse/withdrawal, opiod abuse/withdrawal, was admitted with alcohol withdrawal and elevated LFT.Alcohol withdrawal are improved but patient LFT are getting worse. Patient is alert,awake and oriented, has refused to stay in the hospital.This was discussed in detail with him. The issue of ongoing alcohol abuse was also discussed.Patient has signed AMA. Prognosis is guarded.
--- NOTE | 2018-07-27 13:13 | CON ---
DATE: 07/27/2018 GASTROENTEROLOGY CONSULTATION REQUESTING PHYSICIAN: Dr. Landry REASON FOR CONSULTATION: I have been asked to see this 28-year-old male with longstanding history of alcoholism, multi-substance drug use, including heroin, cocaine, and opiates, who was admitted to the hospital with seizures. HISTORY OF PRESENT ILLNESS: The patient has a history of seizure disorder. The patient's last drink was on the morning prior to admission. He was admitted to the hospital on 07/24/2018. I have been asked to see this patient for elevated liver enzymes. Hepatitis serology is negative. He denies any abdominal pain, nausea, or vomiting. PAST MEDICAL HISTORY: Is notable for multi-substance abuse including heroin, cocaine, opioids, alcohol. He also has a history of anxiety disorder. PAST SURGICAL HISTORY: Is notable for tonsillectomy, adenoidectomy, and placement of eustachian tubes. SOCIAL HISTORY: He consumes four to five pints of vodka a day. He has smoked up to one pack of cigarettes per day. He uses heroin and cocaine and has a history of opioid abuse. CURRENT MEDICATIONS: Medications currently include Xanax. REVIEW OF SYSTEMS: A 14-point review of systems is positive for seizures. He denies any abdominal pain, nausea, or vomiting. PHYSICAL EXAMINATION: GENERAL: Well-developed male, lying in bed, in no acute distress. VITAL SIGNS: Reveal temperature of 97, blood pressure 132/92, heart rate of 88. HEENT: Reveals sclerae to be white, conjunctivae to be pink. NECK: Supple. CHEST: Lungs are clear. HEART: Exam reveals regular rate and rhythm. ABDOMEN: Soft, nontender. EXTREMITIES: Show no edema. LABORATORY DATA: Reveals hepatitis serology negative, hepatitis B surface antibody positive. Chemistries reveal AST 796, ALT 548, total bilirubin of 1.5. Serum lipase is 456. CBC reveals a white blood cell count of 5.1, hemoglobin 14.6, platelet count of 150,000. Ultrasound of the abdomen reveals splenomegaly, echogenic liver with the appearance of steatosis, no gallstones, poorly visualized pancreas. Toxicology screen is positive for phencyclidine. IMPRESSION: This is a 28-year-old male with polysubstance abuse including heroin, cocaine, opioid abuse, alcohol, tobacco, who comes to the hospital with acute alcohol intoxication with the blood alcohol level of 380 with elevated liver enzymes. His liver enzymes were increasing. Ultrasound did not show dilated ducts, but does show an echogenic liver consistent with steatosis; his toxicology screen is positive for benzodiazepines. Acetaminophen level was below 10. I suspect that the elevated liver enzymes are secondary to alcoholic hepatitis. He does not have cholestasis. RECOMMENDATIONS: 1. Continue conservative treatment. He is tolerating a solid diet. 2. The patient should be encouraged to enroll in Alcoholics Anonymous for abstinence from alcohol. He may also benefit from drug rehab. J Carlos De La Cruz MD [email or web address]
== END 2018-07-27 11:36 | disposition left against medical advice (07) | DRG 889 ==
LOC: ED 20:45 → ERH 22:30 → 2RNO 07-25 00:12
PROVIDERS: ADMIT Internal Medicine; ATTEND Internal Medicine
DX: G40.89 Other seizures (principal); F10.239 Alcohol dependence with withdrawal, unspecified; F11.10 Opioid abuse, uncomplicated; F14.10 Cocaine abuse, uncomplicated; F10.229 Alcohol dependence with intoxication, unspecified; K70.10 Alcoholic hepatitis without ascites; Y90.8 Blood alcohol level of 240 mg/100 ml or more; K29.70 Gastritis, unspecified, without bleeding; F17.210 Nicotine dependence, cigarettes, uncomplicated; H91.8X2 Other specified hearing loss, left ear; K76.0 Fatty (change of) liver, not elsewhere classified; F41.9 Anxiety disorder, unspecified